=== PATIENT | female | born 1980 | race Caucasian/White ===

== ENCOUNTER 2024-04-14 05:30 | Emergency (ER) | payer OTHER, SELFPAY ==
[2024-04-14] VITALS (10 sets, daily range): BP systolic 128–205; BP diastolic 70–116; PULSE 70–80; RESP 16–18; TEMP 36.4; O2SAT 10–100
--- NOTE | ~2024-04-14 | XR_ITS ---
Clinical Indication: Hypertension, dizziness PA and lateral views of the chest: Comparison: 04/28/2009 Findings: The lungs are clear, without evidence of focal consolidation or pleural effusion. Cardiome diastinal silhouette is within normal limits. Bones and soft tissues are unremarkable. Impression: Normal chest. Reviewed, dictated and finalized at location . Impression: Normal chest.
--- NOTE | 2024-04-14 05:45 | ECG_ITS ---
Test Date: 2024-04-14 05:50:09 Measurements Intervals Ira Rate: 74 P: 49 DE: 171 QRS: -19 QRSD: 97 T: 23 QT: 393 QTc: 438 Interpretive Statements SINUS RHYTHM LOW QRS VOLTAGE IN PRECORDIAL LEADS [QRS DEFLECTION < 1.0 mV IN CHEST LEADS] CANNOT RULE OUT PREVIOUS INFERIOR INFARCTION POOR R-WAVE PROGRESSION ABNORMAL ECG No previous ECG available for comparison Electronically Signed On 04-14-2024 11:32:18 CDT by Zan Tyson M.D.
[2024-04-14 05:58] LABS: Glucose Point of Care 167 mg/dl (65-105)
[2024-04-14 06:01] LABS: Basophils Percent Auto 0.7 % (0.2-1.2); Eosinophils Percent Auto 0.5 % (0-4.4); Hematocrit 40.1 % (37.0-47.0); Hemoglobin 12.8 g/dL (12.0-15.0); Immature Granulocyte Absolute 0.02 K/mm3 (0.00-0.031); Immature Granulocyte Percent A 0.5 % (0-0.5); Lymphocytes Absolute Auto 1.39 K/mm3 (0.9-3.2); Lymphocytes Percent Auto 34.2 % (18.3-44.2); Mean Corpuscular HGB Conc 31.9 g/dl (32-36); Mean Corpuscular Hemoglobin 28.4 pg (26-34); Mean Corpuscular Volume 88.9 fl (80-100); Mean Platelet Volume 10.7 fl (7.4-10.4); Monocytes Absolute Auto 0.5 K/mm3 (0.1-0.6); Monocytes Percent Auto 13.1 % (2.6-8.5); Neutrophils Absolute Auto 2.1 K/mm3 (1.3-6.7); Platelet Count Result 248 k/mm3 (150-375); Red Blood Count 4.51 M/mm3 (4.2-5.4); Red Cell Distribution Width 13.2 % (11.5-14.5); White Blood Count 4.1 K/mm3 (4.5-10.0)
[2024-04-14 06:11] LABS: Alanine Aminotransferase 12 U/L (6-35); Albumin Level 4.2 g/dL (3.5-5.1); Alkaline Phosphatase 59 U/L (38-126); Anion Gap 11 mmol/L (4-12); Aspartate Amino Transferase 15 U/L (14-36); Bilirubin,Total 0.4 mg/dL (0.2-1.3); Blood Urea Nitrogen 9 mg/dL (7-17); Calcium 8.5 mg/dL (8.4-10.2); Carbon Dioxide 28 mmol/L (22-30); Chloride 98 mmol/L (98-107); Estimated CRCL calculation 118 ml/min; Estimated Glomerular Filt Rate > 60; Glucose 150 mg/dL (65-110); Lipase 70 U/L (23-300); Potassium 3.8 mmol/L (3.4-5.0); Sodium 137 mmol/L (137-145)
[2024-04-14 06:12] LABS: Prothrombin Time 13.7 Seconds (11.1-14.7)
[2024-04-14 06:13] LABS: Partial Thromboplastin Time 33.3 Seconds (22.3-36.8)
[2024-04-14 06:22] LABS: Troponin I < 0.012 ng/mL (0.000-0.034)
[2024-04-14] MEDS: ONDANSETRON INJ 4 MG/2 ML VIAL IV PUSH (08:27)
[2024-04-14] MEDS: SODIUM CHLORIDE 0.9% IV 1,000 ML 999 ML IV CONT (08:27)
[2024-04-14] MEDS: MECLIZINE HCL 25 MG TABLET PO (08:31)
[2024-04-14 09:16] LABS: Troponin I < 0.012 ng/mL (0.000-0.034)
--- NOTE | 2024-04-14 09:50 | ED.GENADULT ---
HPI - General Adult General Chief complaint: Dizziness Stated complaint: dizzy Time Seen by Provider: 04/14/24 07:07 History of Present Illness HPI narrative: Patient is a 43-year-old female who presents ER with dizziness. Sudden onset this morning. Worse when she lays back. Better when she sits forward. It made her nauseous and sweaty. Spinning in nature. Has not had similar symptoms. Has noticed a lymph node her right neck. No ear pressure. Related Data Allergies Allergy/AdvReac Type Severity Reaction Status Date / Time No Known Allergies Allergy Mild Unverified 04/23/17 21:40 Review of Systems Review of Systems: All systems reviewed & are unremarkable except as noted in HPI and below Constitutional: Constitutional: Reports no additional constitutional complaints ENT: Reports dizziness, Denies nasal congestion and Denies sore throat Cardiovascular: Cardiovascular: Reports no additional cardiovascular complaints Respiratory: Respiratory: Reports no additional respiratory complaints Gastrointestinal: Gastrointestinal: Reports no additional gastrointestinal complaints Neurologic: Denies syncope, Denies headache(s), Denies focal weakness and Denies numbness PMFSH Past Medical History Medical History (Updated 04/14/24 @ 09:54 by Lonnie Fontaine MD) Hypertension Surgical History Surgical History (Updated 04/14/24 @ 09:54 by Lonnie Fontaine MD) No pertinent past surgical history Exam Narrative: GENERAL: Well-appearing, well-nourished, and in no acute distress. HEAD: Normocephalic, atraumatic. EYES: PERRL and EOMI. Right gaze nystagmus. ENT: Mucous membranes moist. TMs normal bilaterally. NECK: Supple. Singular right-sided posterior cervical chain lymph node. CHEST: Clear to auscultation. No respiratory distress. HEART: Regular rate and rhythm. Normal peripheral pulses. EXTREMITIES: Normal range of motion. No edema. NEURO: Alert and oriented x3. PSYCH: Normal mood and affect. Course Vital Signs Vital signs: Vital Signs Temperature 97.6 F 04/14/24 05:33 Pulse Rate 80 04/14/24 05:33 Respiratory Rate 18 04/14/24 05:33 Blood Pressure 188/90 H 04/14/24 05:33 Pulse Oximetry 96 04/14/24 05:33 Oxygen Delivery Room Air 04/14/24 05:33 Temperature 97.6 F 04/14/24 05:33 Pulse Rate 80 04/14/24 05:33 Respiratory Rate 18 04/14/24 05:33 Blood Pressure 188/90 H 04/14/24 05:33 Pulse Oximetry 96 04/14/24 05:33 Oxygen Delivery Room Air 04/14/24 05:33 Medical Decision Making MDM Narrative Medical decision making narrative: -Course: Resting comfortably, no acute issues. -Co-morbidities complicating care: Hypertension, obesity -Social determinants of health: None -External Chart Review: None -Hx from independent Sources: Patient -Independent interpretation of studies: Minimally depressed white blood cell count. Coagulation studies as well as CMP normal. Slight elevation in glucose of 150. Troponin negative. Normal chest x-ray and EKG. -Interventions: Meclizine 25 mg p.o., 1 L normal saline IV. -Shared decision making / Disposition: Symptoms abated. Discharge home with meclizine prescription. Vital Signs Vital Signs: Vital Signs Temperature 97.6 F 04/14/24 05:33 Pulse Rate 80 04/14/24 05:33 Respiratory Rate 18 04/14/24 05:33 Blood Pressure 188/90 H 04/14/24 05:33 Pulse Oximetry 96 04/14/24 05:33 Oxygen Delivery Room Air 04/14/24 05:33 Temperature 97.6 F 04/14/24 05:33 Pulse Rate 80 04/14/24 05:33 Respiratory Rate 18 04/14/24 05:33 Blood Pressure 188/90 H 04/14/24 05:33 Pulse Oximetry 96 04/14/24 05:33 Oxygen Delivery Room Air 04/14/24 05:33 Lab Data 04/14/24 05:54 04/14/24 05:54 Labs: Lab Results 04/14/24 04/14/24 04/14/24 Range/Units 05:52 05:54 08:44 WBC 4.1 L (4.5-10.0) K/mm3 RBC 4.51 (4.2-5.4) M/mm3 Hgb 12.8 (12.0-15.0) g/
== END 2024-04-14 10:05 | disposition home or self-care (01) ==
PROVIDERS: Emergency Medicine; Emergency Provider Emergency Medicine
DX: R42 Dizziness and giddiness (principal); I10 Essential (primary) hypertension; E66.9 Obesity, unspecified; Z68.41 Body mass index [BMI] 40.0-44.9, adult
CPT/HCPCS: 36415; 71046; 80053; 82948; 83690; 84484; 85025; 85610; 85730; 93005; 96361; 96374; 99284; A9270; J2405; J7030

== ENCOUNTER 2025-03-12 00:19 | Day surgery (SDC) | payer OTHER, SELFPAY ==
[2025-03-09 08:27] VITALS: BMI 43.4
--- NOTE | 2025-03-09 08:28 | PC.NURSE ---
Report to the Outpatient Waiting Room, entrance under the green pavilion located off [facility], at time _2pm_ on date _19-02-1428_. Planned Procedure Time: _3pm_.? Time changes happen often and if your time is changed the preop area will call you the afternoon before. - You and your visitor will be asked to self-screen and do not enter if you have any COVID symptoms. Please call surgeon if you need to reschedule. - A mask is optional within the hospital at this time. Ok for breakfast and a light lunch. Take only the following medications with a SIP of water on the morning of surgery: ___Take medications as usual.___ DO NOT STOP ANY OF YOUR OTHER PRESCRIPTION MEDICATIONS PRIOR TO SURGERY EXCEPT THE FOLLOWING Hold all vitamins and supplements for 3 days per anesthesiologist. Medications to discontinue per physician Ibuprofen only take with Dr Lei's permission. Acetaminophen OK to take. Date to take last dose____ Please no make-up, nail czech, hairspray, perfume, deodorant, or body powder the day of surgery.? No jewelry (including any body piercings) or valuables the day of surgery, leave them at home.? Please take a shower or bath the night before, or the morning of, surgery with an antibacterial soap.? Wear comfortable, loose fitting clothing.? - Jewelry must be removed prior to entering the operating room.? Rings and piercings that are not removed may be cut off. - The hospital will not accept responsibility for valuables.? - Please leave all valuables, including medications, at home the day of surgery. OK to drive home but not a bad idea to have a coach tour driver. Follow any additional instructions given to you from your surgeon. Telephone instructions given to __Crystal__and asked if any additional questions and then verbalized understanding. Patient advised to call surgeon office or pre surgery nurse liaison [phone] if any additional questions.
[2025-03-12] VITALS (7 sets, daily range): BP systolic 136–161; BP diastolic 79–88; PULSE 66–81; RESP 16; TEMP 36.3; O2SAT 94–97
--- NOTE | 2025-03-12 13:07 | WPDHPUPDATE1 ---
History and Physical Update Update Date/Time: 03/12/25 13:07 History and Physical has been reviewed, including an updated exam of the patient. There are NO changes in the patient's condition. Risks, benefits, and alternatives have been discussed and questions answered. Patient agrees to proceed with procedure.
--- NOTE | 2025-03-12 13:51 | S_PTH ---
PATIENT: Krupa Herman LOC: [facility] U#:[id number] AGE/SX: 44/F ROOM: RE03/12/[address]: Cong Lei MD : 1980 BED: DIS: 03/12/2025 SPEC #: [id number] RECD: 03/13/25 08:24 STATUS: MARCOS REConner #: [id number] EZEQUIEL: 03/12/25 13:[address]: Cong Lei DEPT: [facility] Surgical RECD BY: Michelle Santos ENTERED: 03/13/25 08:24 SP TYPE: Surgical OTHR DR: Zan LambMD Tissues: A - Cyst Procedures: Hematoxylin and Eosin Stain Gross and Microscopic Level 4
[2025-03-12] MEDS: LIDO 1%/EPINEPHRINE 1:100,000 20 ML VIAL INFILTRATE (14:00)
[2025-03-12] MEDS: BUPivacaine HCL 0.5% PF 30 ML VIAL 20 ML INFILTRATE (14:00)
--- NOTE | 2025-03-12 14:18 | W.PM.PROC2 ---
Procedure Note - Detailed Date of Procedure 03/12/25 Pre-op Diagnosis Mid upper back Sebaceous Cyst Post-op Diagnosis Same Procedure Performed Excision of mid upper back sebaceous cyst with 4.5cm intermediate layered wound closure Surgeon Cong Lei MD Anesthesia Local Indications Patient is a 44-year-old female presented with a slowly enlarging mass on her back. On examination of was consistent with a sebaceous cyst which was non ruptured and not infected. She presents now for excision. Findings The cyst measured 2x1.5x1.5cm. It was well circumscribed and the wall was completely removed within the ellipse of tissue that was excised out. Grossly was consistent with a inclusion cyst most likely a sebaceous cyst. It was sent to pathology for examination. Description of Procedure After informed consent was obtained patient brought to the operating room she was placed prone on operating table. The area the mid upper back region was then prepped and draped usual sterile fashion. Time-out was then performed correctly identifying the patient as well as procedure to be performed. Site marking was verified. No antibiotics were started is no IV was started. I 1st started by anesthetizing the area around the cyst utilizing 1% lidocaine mixed with 0.5% Marcaine 50 50 mixture with some epinephrine. Once adequate analgesia had been achieved around the area I then made a vertical elongated ellipse incision to incorporate the edges and wall of the cyst. The initial incision was carried sharply down through the dermis of the skin with a scalpel. I then completely excised out the ellipse of tissue with the cyst wall within it and the attached overlying skin with electrocautery. The cyst measured approximately 2x1.5x1.5cm. It was sent to pathology for examination. Hemostasis an incision was then achieved electrocautery. It was then irrigated sterile saline solution. A multilayered intermediate layered closure utilizing interrupted 2-0 Vicryl sutures in multiple layers in the subcutaneous tissues was then performed. It was then followed with interrupted 3-0 Vicryl sutures in a deep dermal layer. The skin edges were then approximated utilizing a running subcuticular 4-0 Monocryl suture. The length of the skin closure was 4.5cm. The incision was then cleaned the skin glue was applied. The patient tolerated the procedure well no complications. All sponges, needles, and instrument counts were correct at the end procedure. EBL was _10__cc. The patient was awakened and taken to recovery in stable and satisfactory condition. Implants None Estimated Blood Loss 10 Drains No Packing No Pathology Yes (Cyst to pathology) Complications No immediate complications Condition Stable Disposition PACU [facility] Billing Surgery - Charge Forward: Surgery Billing
== END 2025-03-12 14:32 | disposition home or self-care (01) ==
PROVIDERS: PCP Internal Medicine; Visit Provider Surgery
PROC: (CPT 11403; principal; 2025-03-12 15:00)
DX: L72.0 Epidermal cyst (principal)
CPT/HCPCS: 11403; 12032; 88305; A9270; J2004

== ENCOUNTER 2025-08-01 09:49 | Outpatient (CLI) | payer OTHER, SELFPAY ==
--- NOTE | ~2025-08-01 | MM_ITS ---
EXAMINATION: MM screening vito BI w nabil HISTORY: Screening TECHNIQUE: Craniocaudal and mediolateral oblique 3-D tomosynthesis images were obtained and synthetic 2-D images were generated. CAD analysis was submitted and interpreted. COMPARISON: None provided BREAST PARENCHYMAL COMPOSITION: Not Dense: The breasts are almost entirely fatty. FINDINGS: There is no evidence of suspicious mass, calcification, or architectural distortion to suggest malignancy in either breast. IMPRESSION: 1. No mammographic evidence of malignancy. 2. Recommend routine screening mammography in one year. BI-RADS Category 1: Negative Reviewed, dictated and finalized at location B. ROLLING COORDINATOR
== END 2025-08-01 09:50 | disposition home or self-care (01) ==
LOC: ANHFOHIMG 09:51
PROVIDERS: PCP Internal Medicine; Visit Provider Internal Medicine
DX: Z12.31 Encounter for screening mammogram for malignant neoplasm of breast (principal)
CPT/HCPCS: 77063; 77067

== ENCOUNTER 2025-08-07 00:25 | Day surgery (SDC) | payer OTHER, SELFPAY ==
--- OUTSIDE RECORDS SUMMARY | 2020-08-25 12:21 | XMS_ITS | Continuity of Care Document ---
Author Organization [facility] Address [address] [place] [address] Phone Care Team Providers Care Provider Relations Specialist Name Role Phone Kanu Love MD Unavailable Unavailable Advance Directives Directive Yes / No Effective Date File Name No Information Encounters Encounter Description Practice Location Reason(s) For Visit Diagnoses Date Provider Providers Copied on Encounter [facility] , [address], [place], [place], [id number], [place] tel:[phone] Urgent Care No Information Ivan Bobby. [address], [place], [place], [id number], [place]. tel:[phone] Family History Family Member Type Diagnosis Age At Onset No Information Payers Payer name Insurance type Covered alliance party ID Authoriza tion(s) No Information Social History Type Description Quantity Date Captured Comments Sex Female Smoking Status No Information Chief Complaint And Reason For Visit No Information Reason For Referral Reason For Referral No Information History Of Present Illness Encounter Date Complaint History Of Prese nt Illness No Information Functional Status Date Functional Assessmen t No Information Instructions Date Instruction Additional Infor mation No Information Assessments Type Assessment Date No Information Patient Care Teams Name Effective Dates (start - stop) Status Members No Information
--- OUTSIDE RECORDS SUMMARY | 2025-06-21 04:38 | XMS_ITS | Continuity of Care Document ---
Author Organization [facility] Address [address] [place] [address] Phone Care Team Providers Care Crimping Press Operator Name Role Phone Jorge GODOY, FACC, Molly Unavailable Unavail able Allergies, Adverse Reactions, Alerts Substance Reaction Status Criticality No Known Allergies Active No Inform ation Medications Medication Instructions Dosage Effective Dates (start - stop) Status Comments lisinopril 20 mg-hydrochlorothiazid e 12.5 mg tablet take 1 tablet by oral route every day 1.00 tablet - Active tramadol 50 mg tablet TAKE 1 TABLET BY MOUTH 4 TIMES DAILY NEEDED FOR KNEE PAIN - Active ondansetron HCl 4 mg tablet TAKE 1 TABLET BY MOUTH EVERY 8 HOURS - Active diazepam 5 mg tablet TAKE 1 TABLET BY MOUTH ONE HOUR BEFORE PROCEDURE (DO NOT DRIVE) - Active levothyroxine 50 mcg tablet TAKE 1 TABLET BY MOUTH DAILY - Active Ozempic 1 mg/dose (4 mg/3 mL) subcutaneous pen injector INJECT 1MG UNDER THE SKIN ONCE A WEEK - Active carvedilol 25 mg tablet - Active metformin 500 mg tablet - Active valacyclovir 500 mg tablet TAKE 1 TABLET BY MOUTH TWICE DAILY FOR 7 DAYS - Active atorvastatin 10 mg tablet - Active Procedures Procedure Date NTRPROF PH1/NTRNET/EHR 5/> 09-2025 TTE W/DOPPLER, COMPLETE Complex e/m visit add on OFFICE/OUTPATIENT VISIT, NEW ELECTROCARDIOGRAM, COMPLETE ELECTROCARDIOGRAM REPORT Advance Directives Directive Yes / No Effective Date File Name No Information Encounters Encounter Description Practice Location Reason(s) For Visit Diagnoses Date Provider Providers Copied on Encounter NTRPROF PH1/NTRNET/E HR 5/> [facility], [address] [place] [address], [id number] , tel: [phone] [facility] Encounter for preprocedural cardiovascular examination 5 Jorge Barnes. [address] [place] [address], [place], [place], [id number] , [place]. tel: [phone] [facility], [address] [place] [address], [id number] , tel: [phone] [facility] Lucho Bowden patient (chief complaint) Body mass index [BMI] 45.0-49.9, adultMorbid (severe) obesity due to excess caloriesEssential (primary) hypertensionEncounte r for other preprocedural examination 5 Jorge Barnes. [address] [place] [address], [id number] , . tel: [phone] Referring Provider: Zan Lamb, [address] [place], [place], [facility]. tel:[phone] [facility], [address] [place] [address], [id number] , tel: [phone] [facility] Congregation No Information 5 Jorge Barnes. [address] [place], [place] [address], [place], [id number] , [place]. tel: [phone] Referring Provider: Zan Lamb, [address] [place], [address]. tel:[phone] OFFICE/OUTPA TIENT VISIT, NEW [facility], [address] [place] [address], [id number] , tel: [phone] [facility] Congregation New patient (chief complaint) Essential (primary) hypertensionMorbid (severe) obesity due to excess caloriesEncounter for other preprocedural examination May-2 5 Jorge Barnes. [address], [place], [place], [id number] , . tel: [phone] Referring Provider: Zan Lamb, [address] [place] [address], [id number]. tel:[phone] [facility], [address] [place] [address], [id number] , tel: [phone] [facility] Congregation No Information 5 Jorge Barnes. [address] [place], [place], [id number] , [place]. tel: [phone] [facility], [address] [place] [address], [id number] , [place] tel: [phone] [facility] No Information 5 Spring French. [address] [place], [place], [id number] , [place]. tel: [phone] Referring Provider: Manolo Londono, [facility] [address] , [place], [address] . tel:[phone] [facility], [address] [place] [address], [id number] , tel: [phone] [facility] Congregation Chest pain, unspecifiedShortness of breathEssential (primary) hypertensionMorbid (severe) obesity due to excess calories 0 5 Jorge Barnes. [address] [place], [place], [id number] , . tel: [phone] Family History Family Member Type Diagnosis Age At Onset No Information Payers Payer name Insurance type Covered constitution party ID Authoriza tion(s) R CI [id number] [facility] NEXUS [facility] CI [id number] Social History Type Description Quantity Date Captured Comments Sex Female Smoking Status No Information Chief Complaint And Reason For Visit No Information Reason For Referral Reason For Referral No Information Plan Of Treatment Date Type Action Status Goal Dietary manageme nt education, guidance, and counseling completed Future Order: Radiology Order Ec hocardiogram, Complete Transthoracic ([id number]), Ordered on: Ordered History Of Present Illness Encounter Date Complaint History Of Prese nt Illness New patient New patient New patient New patient Functional Status Date Functional Assessmen t No Information Instructions Date Instruction Additional Infor mation Dietary management e ducation, guidance, and counseling Related to Body mass index [BMI] 45.0-49.9, adult Assessments Type Assessment Date No Information Patient Care Teams Name Effective Dates (start - stop) Status Members No Information
[2025-07-23 13:10] VITALS: BMI 47.0
--- OUTSIDE RECORDS SUMMARY | 2025-08-07 00:28 | XMS_ITS | Data Portability ---
Author Organization [place] [facility] [place] [facility], Main Office Address [address] [place] [address] Care Team Providers Care Passenger Service Manager Name Role Phone HIEN LAMB Primary Care Provider HIEN LAMB Referring Provider [phone] EV SANDHU Remittance Clerk Unavailable Assessment Encounter Date Assessment Date Assessment LastModified by Organization Details LastModified Time 08/09/2023 08/09/2023 Continue current therapy will follow-up in 4 months diagnosis discussed blood work reviewed [email or web address] Not available 08/09/2023 21:24:14 01/23/2025 01/23/2025 This note is dictated and transcribed by [employer]. Mechanical Insulator variances may occur. Despite proofreading, typographical errors may occur. Occasional wrong-word or '[id number]' substitutions may have occurred due to the inherent limitations of voice recording. Read the chart carefully and recognize, using context, where substitutions have occurred. [email or web address] Not available 01/23/2025 11:32:57 05/21/2025 05/21/2025 45-year-old female presents for evaluation of her right knee. This is a work comp injury. 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 She has a 10-12 hour shift which she usually involves [phone] steps a day. She was moving a Pallet at work when the knee buckled, this happened on 03/21/2025. Since then, she has had persistent lateral pain and giving out as well as locking up of the knee constantly. She has pain with walking on it and has been on restricted duty where she has restricted walking and rides around in a mobility scooter. She has been taking tramadol and Tylenol as well as prednisone. She has also done several sessions of PT which did not help. She has a history of diabetes with A1c of 6.7. Review of systems per patient questionnaire Physical exam: She has antalgic gait favoring the right side. Tenderness palpation over the medial and lateral joint line, primarily lateral and posterolateral. She has range of motion 0-140, pain in terminal flexion, positive Kristie's. She had a palpable catching and clunk with moving from flexion to extension, this happened multiple times during the visit today. 1A Juan's, stable posterior drawer, stable varus and valgus stress x-rays were reviewed, demonstrating some mild degenerative changes and very small osteophytes, no acute bony abnormality. MRI was reviewed, ligaments and menisci appear to be intact however she does have area of signal and in the proximal tibia posteriorly at the lateral meniscus root insertion, there is also fluid and signal in the posterior notch in that area based on exam, concern for a meniscus tear causing her mechanical symptoms, despite no obvious tear seen on MRI, she does have bony edema at the root insertion Of the lateral meniscus. Given that she has failed conservative management, with persistent and constant catching and locking of that knee, we discussed surgery for an exam under anesthesia, diagnostic arthroscopy and possible meniscectomy versus repair. We will work with her insurance to get approval. Risks, benefits, and alternatives to surgery were discussed with the patient. Risks include but are not limited to pain, stiffness, infection, bleeding, blood clot, injury to other structures including nerves or blood vessels, need for future surgery, and anesthesia risks. We discussed the goal of surgery is to improve symptoms but there is no guarantee of improvement and it is possible the patient's condition is worse after surgery. Patient agreed and would like to proceed. Discussed that diabetes and obesity does increase her risk infection and other complication risk. Not available 05/21/2025 12:23:49 07/02/2025 07/02/2025 HPI: 45 year old female presents today for postop follow up after undergoing right knee partial lateral meniscectomy, chondroplasty, plica excision on 06/19. She is approximately 2 weeks postop. She reports posterior knee swelling has resolved, but has occassional catching of the knee. Pain and swelling is intermittent and localized superior aspect of the knee. Symptoms are excerbated by prolong standing. Currently rates her pain 5/10. Physical Exam: General: Normal appearance. No acute distress. Inspection: Incisions are clean dry and intact. No signs or symptoms of infection. Palpation: Nontender with palpitation around the incision site. Sensation: Lower extremity sensation intact. Assessment & Plan: She is approximately 2 weeks post, overall doing well still experiencing ocassional catching and intermittnet pain and swelling. She works at [employer] and doesn't feel like she can return to work right now. PT ordered. This will be beneficial for continued strengthening and ROM, so she is able to perform all job duties without pain or limitations. Rx for Naproxen Work Status: Return in 2 weeks with no bending or kneeling and to allow for frequent breaks. Follow Up: 4 weeks. All questions were answered. Patient verbalized understanding of treatment plan [email or web address] Not available 07/02/2025 13:28:06 07/30/2025 07/30/2025 45-year-old female presents for follow-up of her right knee status post meniscectomy and synovectomy on 06/19/2025. She has been doing PT, has 3 sessions left, reports that has been helping. She has been on light duty at work and has been able to function. Overall she reports feeling significantly better, she still has some occasional pressure clicking especially with extended periods of activity. Incisions are well healed. 1+ effusion. Some sensitivity around the joint line. Range of motion 0-130 At this point she is making progress. We will have her finish her course of PT. We will advance her restrictions to activities as tolerated with breaks, no more restrictions on bending or kneeling. Follow up in 4 weeks, anticipate MMI at that time. Not available 07/30/2025 14:15:32 Plan of Treatment Reminders Order Date Submit Date Provider Last Modified By Organization Details Last Modified Time Details Appointments Any 5 2024 11:30A M Kanu Morris MD Not available Not available Not available Lab None recorded. Referral physical therapist referral - Please schedule pt for R knee post op lateral meniscus tear. 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 Surgeries None recorded. Imaging None recorded. Medication Orders naproxen 500 mg tablet 2024 025 [id number], [address], [place], [phone], 07/02/2025 16:04:16 Patient TargetsNo targets recorded. Patient InstructionsNo instructions recorded. Reason for Referral Physical Therapist Referral for Pain of right knee joint R knee post op Please schedule pt for R knee post op lateral meniscus tear. [facility] 07/02/25 Additional InfoInjury Date 03/21/2025Injured Body Part R KNEEWorker's Comp PHOEBE [employer] [id number] Referring Physician: Alka Champagne, Orthopedic Surgery, Encounter Date: 07/02/2025 Results Created Date Observation Date Name Description Value Unit Range Abnormal Flag Note LastModifiedBy Organization Detail LastModifiedTime 05/17/2004/23/2025 MRI, knee, w/o contr ast No observ ation record ed. [email or web address] Not Available 12/2024 17:37:37 Result Notes None recorded. Problems Name Problem SNOMED Code Status Onset Date Resolution Date Notes Provider Name and Address Organization Details Recorded Time Chronic tonsilliti s 89086903 Active 2021 Not Available [facility] 3 23:00:26 Polycystic ovary syndrome 932334395 Active 2021 Not Available [facility] 3 23:00:26 Essential hypertensi on 29097520 Active 2021 Not Available [facility] 3 23:00:26 Herpes simplex type 1 infection 941678014 Active 2021 Not Available [facility] 3 23:00:26 Motion sickness 52773346 Active 2021 Not Available [facility] 3 23:00:26 Obesity 710012524 Active 2021 Not Available [facility] 3 23:00:26 Otitis media 90230742 Active 2021 Not Available [facility] 3 23:00:26 Chest pain 83865762 Active 2021 Not Available [facility] 3 23:00:26 Hypothyroi dism 82478156 Active 2021 Not Available [facility] 3 23:00:26 Headache 16045735 Active 2021 Not Available [facility] 3 23:00:26 Thyroid stimulatin g hormone level above reference range 082930715 Active 2021 Not Available [facility] 3 23:00:26 Obstructiv e sleep apnea syndrome 98114998 Active 2022 Not Available [facility] 3 23:00:26 Fatigue 93715271 Active 2022 Not Available [facility] 3 23:00:26 Blood glucose outside reference range 579656075 Active 2022 Not Available [facility] 3 23:00:26 Type 2 diabetes mellitus without complicati on 089419928 Active 2022 Lila martin, [facility] [employer] [facility] 3 10:38:40 Type 2 diabetes mellitus 52845164 Active 2024 Dominick Mcdowell DPM [address], [address], [place], [address] , [facility] [employer] [facility] 5 11:33:39 Plantar fasciitis 595239164 Active 2024 Dominick Mcdowell DPM [address], [address], [place], [address] , [facility] [employer] [facility] 5 11:33:45 Pain of right knee joint 5607741830857 00 Active 2024 Ewa Martinez CNA veronica MAUREEN SANCHEZ [facility] 11:34:13 Notes:[facility] split night sleep study 06/11/22 AHI = 46, supine AHI = 75, [employer] medium AirFit N30i nasal mask @ 14 cmH2O Medical History: Obesity with very severe OSAHS, AHI = 46, 06/11/22, on CPAP c/o IVRC Hypothyroidism Hypertriglyceridemia Hypertension EF 60% T2DM YVETTE PCOS HSV-1 infection Problem Notes None recorded. Procedures Surgical History Date Name Laterality Status Provider Name and Address Organization Details Recorded Time completed Ewa Martinez CNA [employer] [facility] 05/21/2025 11:43:12 arthroscopy of shoulder completed Ewa Martinez CNA MAUREEN [employer] [facility] 05/21/2025 11:43:30 Carpal tunnel surgery completed Ewa Martinez CNA [employer] 05/21/2025 11:43:22 destruction of lesion of uterus completed Not Available [facility] 11/12/2022 00:26:54 Tubal Ligation completed Not Available [facility] 11/12/2022 00:26:54 Imaging Results None recorded. Procedure Notes None recorded. Medical Equipment None Reported. Allergies No known drug allergies Medications Name Sig Start Date Stop Date Status Note LastModified by Organization Details LastModified Time amoxicill in 500 mg capsule TAKE ONE CAPSULE BY MOUTH THREE TIMES DAILY UNTIL ALL TAKEN 06/28 completed Not Available Not Available Not Available metformin 500 mg tablet TAKE 1 TABLET BY MOUTH TWICE DAILY active Not Available Not Available No t Available carvedilo l 25 mg tablet TAKE 1 TABLET BY MOUTH TWICE DAILY active Not Available Not Available No t Available clonidine HCl 0.1 mg tablet TAKE 1 TABLET BY MOUTH TWICE DAILY 05/21 completed Not Available Not Available Not Available carvedilo l 12.5 mg tablet TAKE 1/2 TABLET BY MOUTH TWICE DAILY 05/04 completed changed to 25mg BID Not Available Not Available Not Available clindamyc in HCl 300 mg capsule TAKE 1 CAPSULE BY MOUTH THREE TIMES DAILY FOR 7 DAYS 05/21 completed Not Available Not Available Not Available atorvasta tin 10 mg tablet TAKE 1 TABLET BY MOUTH EVERY DAY active Not Available Not Available No t Available lisinopri l 20 mg-hydroc hlorothia zide 12.5 mg tablet TAKE 1 TABLET BY MOUTH EVERY DAY active Not Available Not Available No t Available ibuprofen 800 mg tablet TAKE 1 TABLET BY MOUTH THREE TIMES DAILY WITH FOOD 12/15 completed Not Available Not Available Not Available hydrocodo ne 5 mg-acetam inophen 325 mg tablet Take 1 tablet every 6 hours by oral route. 2024 active Not Available Not Available Not Avai lable ondansetr on HCl 4 mg tablet TAKE 1 TABLET BY MOUTH EVERY 8 HOURS active Not Available Not Available No t Available prednison e 20 mg tablet TAKE 2 TABLETS BY MOUTH DAILY 05/21 completed Not Available Not Available Not Available meclizine 12.5 mg tablet TAKE 1 TABLET BY MOUTH THREE TIMES DAILY NEEDED FOR DIZZINES S 05/21 completed Not Available Not Available Not Available amlodipin e 2.5 mg tablet TAKE 1 TABLET BY MOUTH EVERY DAY 07/06 completed Not Available Not Available Not Available phentermi ne 37.5 mg tablet Take 1 tablet every day by oral route. active Not Available Not Available No t Available amlodipin e 5 mg tablet TAKE 1 TABLET BY MOUTH ONCE DAILY 02/01 completed Not Available Not Available Not Available valacyclo vir 500 mg tablet TAKE 1 TABLET BY MOUTH TWICE DAILY FOR 7 DAYS 05/21 completed Not Available Not Available Not Available tramadol 50 mg tablet TAKE 1 TABLET BY MOUTH 4 TIMES DAILY NEEDED FOR KNEE PAIN active Not Available Not Available No t Available spironola ctone 25 mg tablet TAKE 1 TABLET BY MOUTH ONCE DAILY 05/21 completed Not Available Not Available Not Available levothyro xine 50 mcg tablet TAKE 1 TABLET BY MOUTH DAILY active Not Available Not Available No t Available neomycin- polymyxin -dexameth 3.5 mg/mL-10, 000 unit/mL-0 .1% eye drops INSTILL 1 DROP IN BOTH EYES FOUR TIMES DAILY FOR 7 DAYS 11/19 completed Not Available Not Available Not Available prednison e 50 mg tablet TAKE 1 TABLET BY MOUTH EVERY MORNING 11/19 completed Not Available Not Available Not Available losartan 25 mg tablet Take 1 tablet every day by oral route. active Not Available Not Available No t Available lisinopri l 10 mg-hydroc hlorothia zide 12.5 mg tablet TAKE 1 TABLET BY MOUTH DAILY active Not Available Not Available No t Available scopolami ne 1 mg over 3 days transderm al patch APPLY PATCH TOPICALL Y 4 HOURS BEFORE TRAVEL AND CHANGE PATCH EVERY 72 HOURS 05/21 completed Not Available Not Available Not Available naproxen 500 mg tablet TAKE 1 TABLET BY MOUTH TWICE DAILY active Not Available Not Available No t Available diazepam 5 mg tablet TAKE 1 TABLET BY MOUTH ONE HOUR BEFORE PROCEDUR E (DO NOT DRIVE) 05/21 completed Not Available Not Available Not Available amoxicill in 875 mg-potass ium clavulana te 125 mg tablet TAKE 1 TABLET BY MOUTH TWICE DAILY 06/28 completed Not Available Not Available Not Available metaxalon e 800 mg tablet 11/19 completed Not Available Not Available Not Available chlorhexi dine gluconate 0.12 % mouthwash SWISH AND SPIT 15 ML BY MOUTH TWICE DAILY 05/21 completed Not Available Not Available Not Available Tylenol active Not Available Not Avail able Not Available Ranitidin e 06/12 completed Not Available Not Available Not Available Ozempic 1 mg/dose (4 mg/3 mL) subcutane ous pen injector INJECT 1MG UNDER THE SKIN ONCE A WEEK active Not Available Not Available No t Available Ozempic 2 mg/dose (8 mg/3 mL) subcutane ous pen injector Inject 2 mg every week by subcutan eous route. 05/21 completed Not Available Not Available Not Available Ozempic 0.25 mg or 0.5 mg (2 mg/3 mL) subcutane ous pen injector INJECT 0.25 MG SUBCUTAN EOUSLY ONCE A WEEK 05/21 completed Not Available Not Available Not Available Vitals Date Recorded Body height Body temperature Heart rate Oxygen saturation Systolic And Diastolic Provider Name and Address Organization Details Last Updated DateTime 167.64 cm 98.1 [degF] 73 /min 99 % 189/110 mm[Hg] ALVARO Bowman [place] [facility] 10:57:35 Date Recorded Body mass index (BMI) Body weight Provider Name and Address Organization Details Last Updated DateTime 01/23/2025 44.4 kg/m2 971155.9 g Leilani Chandler [facility] 01/23/2025 10:52:50 Date Recorded Body height Body mass index (BMI) Body weight Provider Name and Address Organization Details Last Updated DateTime 05/21/2025 167.64 cm 44.4 kg/m2 691073.9 g Ewa Dianetim [employer] [facility] 05/21/2025 11:39:09 Date Recorded Body height Body mass index (BMI) Body weight Pain severity - 0-10 verbal numeric rating [Score] - Reported Provider Name and Address Organization Details Last Updated DateTime 07/02/2025 167.64 cm 44.4 kg/m2 997310.9 g 5 Dena Conte [facility] 07/02/2025 11:54:13 Date Recorded Body height Body mass index (BMI) Body weight Pain severity - 0-10 verbal numeric rating [Score] - Reported Provider Name and Address Organization Details Last Updated DateTime 07/30/2025 167.64 cm 44.4 kg/m2 898164.9 g 2 Dena Conte [facility] 07/30/2025 11:59:24 Date Recorded Body height Body mass index (BMI) Body weight Body temperature Heart rate Systolic And Diastolic Provider Name and Address Organization Details Last Updated DateTime 167.64 cm 49.6 kg/m2 084792. 86 g 97.3 [degF] 79 /min 126/82 mm[Hg] Savi Soliman [facility] 3 14:37:13 Social History Question Answer Notes LastModified by Organizat ion Details LastModified Time Tobacco Smoking Status Never Smoker Not Available [employer] 11/12/2022 00:26:33 Do You Have An Advance Directive? No [id number] Information not available 11/12/2022 If You Are , What Was Your Level Of Alcohol Consumption Prior To ? None MIGRATION.50661 [id number] Information not available 11/12/2022 What Is Your Level Of Caffeine Consumption? Occasional Coffee MIGRATION.57372 [id number] Information not available 11/12/2022 In The 14 Days Before Symptom Onset, Have You Had Close Contact With A Laboratory-confi rmed COVID-19 While That Case Was Ill? No MIGRATION.20097 [id number] Information not available 11/12/2022 In The 14 Days Before Symptom Onset, Have You Had Close Contact With A Person Who Is Under Investigation For COVID-19 While That Person Was Ill? No MIGRATION.28169 [id number] Information not available 11/12/2022 What Type Of Diet Are You Following? REGULAR Low Carb MIGRATION.16977 18330 Information not available 11/12/2022 What Is The Highest Grade Or Level Of School You Have Completed Or The Highest Degree You Have Received? [id number] MIGRATION.66520 30927 Information not available 11/12/2022 Have There Been Any Changes To Your Family Or Social Situation? No MIGRATION.55737 55827 Information not available 11/12/2022 Are There Any Guns Present In Your Home? No MIGRATION.22310 73814 Information not available 11/12/2022 Do You Use Insect Repellent Routinely? No MIGRATION.90656 90785 Information not available 11/12/2022 Where Do You Live? [facility] MIGRATION.59307 47673 Information not available 11/12/2022 Do You Have A Medical Power Of Desktop Engineer? No MIGRATION.48342 32167 Information not available 11/12/2022 What Was The Date Of Your Most Recent Tobacco Screening? 07/02/2025 [email or web address] Information not available 07/02/2025 Do You Have Any Pets? Yes Cats And Ddogs MIGRATION.58043 66239 Information not available 11/12/2022 What Is Your Relationship Status? MIGRATION.95888 01984 Information not available 11/12/2022 Do You Use Your Seat Belt Or Car Seat Routinely? Yes MIGRATION.45535 74643 Information not available 11/12/2022 Do You Have Smoke And Carbon Monoxide Detectors In Your Home? Yes MIGRATION.39052 20099 Information not available 11/12/2022 Are You Passively Exposed To Smoke? No MIGRATION.81610 73155 Information not available 11/12/2022 Are There Any Smokers In Your House? No MIGRATION.52377 80319 Information not available 11/12/2022 What Types Of Sporting Activities Do You Participate In? None MIGRATION.74117 01299 Information not available 11/12/2022 Do You Use Sunscreen Routinely? No MIGRATION.46727 88202 Information not available 11/12/2022 Has Tobacco Cessation Counseling Been Provided? No MIGRATION.73765 46417 Information not available 11/12/2022 Have You Recently Traveled Abroad? No MIGRATION.39736 47372 Information not available 11/12/2022 Do You Have Any Dietary Restrictions? No MIGRATION.94894 35762 Information not available 11/12/2022 Sex: Female Functional Status Question Answer Note LastModified by Organizat [employer] Details LastModified Time Do you use any illicit or recreational drugs? No MIGRATION.[id number] 26 Information not available 11/12/2022 Do you or have you ever used any other forms of tobacco or nicotine? No MIGRATION.46635913 26 Information not available 11/12/2022 What is your level of alcohol consumption? None MIGRATION.[id number] 26 Information not available 11/12/2022 What is your occupation? [employer] MIGRATION.[id number] 26 Information not available 11/12/2022 What is your exercise level? None MIGRATION.[id number] 26 Information not available 11/12/2022 Mental Status Question Answer Note LastModified by Organizat [employer] Details LastModified Time Do you feel stressed (tense, restless, nervous, or anxious, or unable to sleep at night)? [id number] job MIGRATION.[id number] 6 Information not available 11/12/2022 Family History Relationship Description Onset Age of this Age Resolved Age Notes LastModified by Organization Details LastModified Time Mother Malignant neoplasm of ovary [id number] Not available 11/12/2022 00:26:55 Father History of malignant neoplasm of uterine body [id number].602 [id number] Not available 11/12/2022 00:26:55 Daughter Anemia 18 [email or web address] Not availa ble 03/19/2023 12:02:34 Daughter Anemia 14 IS 24 NOW Not available 03/19/2023 12:02:44 Mother Diabetes mellitus [email or web address] Not available 2024 10:53:21 Mother Cerebrovascu lar accident [email or web address] Not available 10:53:38 Mother Essential hypertension [email or web address] Not available 10:54:04 Mother Osteoporosis Not availa ble 01/23/2025 10:54:24 Father Diabetes mellitus [email or web address] Not available 2024 10:53:21 Father Arthritis Not available 01/23/2025 10:53:46 Father Essential hypertension [email or web address] Not available 10:54:04 Medical History Condition Response NERVE DISEASE N BLINDNESS N RHEUMATIC FEVER N KIDNEY STONES N BLADDER PROBLEMS N MRSA N OTHER # 1 N POLIO N LUNG DISEASE/DISORDER N HISTORY OF DRUG ABUSE N RADIATION / CHEMOTHERAPY N COPD N Other # 2 N BLOOD DISEASES N EAR OR HEARING PROBLEMS N MUMPS N SHINGLES N BOWEL PROBLEMS N DEPRESSION (INCLUDING POST ) N STROKE/TIA N ULCERS N BENIGN PROSTATIC HYPERPLASIA N MEASLES N HYPOTENSION N MYOCARDIAL INFARCTION N OBESITY Y GERD/NAUSEA N ANEURYSM N URINARY/BLADDER/KIDNEY PROBLEMS N CORONARY ARTERY DISEASE (CAD) N ADDICTION CONCERNS N ENDOMETRIOSIS Y Impotence N USE OF BLOOD THINNERS N SKIN PROBLEMS N GASTROINTESTINAL DISORDER N PERIPHERAL VASCULAR DISEASE N MUSCLE,JOINT OR BONE PROBLEMS N GASTROINTESTINAL BLEEDING N BLOOD CLOTS N ASTHMA N CATARACTS N ERECTILE DYSFUNCTION N VARICOSITIES N GI PROBLEMS N Low Testosterone N INFERTILITY N AIDS/HIV N CHEMOTHERAPY / RADIATION N LIVER DISEASE N MALE HYPOGONADISM N HYPERTENSION Y Deficiency N TOURETTE'S N ANXIETY DISORDER N BLOOD TRANSFUSION Y ANEMIA/BLOOD DISORDER N CHRONIC EAR INFECTIONS N BRONCHITIS N TUBERCULOSIS N GLAUCOMA N FOOT PROBLEM N DIVERTICULITIS N SLEEP APNEA N CHICKENPOX N INFECTIOUS DISEASE N HEART ARRHYTHMIA N PROSTATE N INSOMNIA Y HIGH CHOLESTEROL / HYPERLIPIDEMIA N HYPERTHYROIDISM N EYE PROBLEMS N EDEMA N CHRONIC PAIN SYNDROME N CAROTID BLOCKAGE N CONSTIPATION N HAVE YOU BEEN HOSPITALIZED OR SEEN IN [facility] IN THE PAST YEAR ? N ATHEROSCLEROSIS N BREAST PROBLEMS N DIALYSIS N ECZEMA N HISTORY WITH COMPLICATIONS WITH ANESTHES IA ? N OSTEOPOROSIS N ARTHRITIS N NO SIGNIFICANT PAST MEDICAL HISTORY N APPENDICITIS N DIABETES, TYPE Y BAD TEETH N ENT N HEARTBURN / REFLUX Y AUTISM SPECTRUM DISORDER (ASD) N HEPATITIS / LIVER DISEASE N GOUT N SLEEP DISORDER N ALZHEIMER'S DISEASE N Brain Problems N HERPES N DEMENTIA N HEADACHES/MIGRAINES Y SEIZURES/EPILEPSY N VASCULAR DISEASE N PACEMAKER N Blood Disorder N DIZZINESS N HEART DISEASE/HEART PROBLEMS N KIDNEY DISEASE N MULTIPLE SCLEROSIS N CARDIAC ARRHYTHMIA N CANCER: SPECIFY N ATRIAL FIBRILLATION N [place] N PULMONARY EMBOLISM N AUTOIMMUNE DISEASE N Gynecological HistoryNo gynecological history recorded. Obstetrics History GPAL:G 0 P 0 0 0 0 Immunizations Vaccine Type Date Status Note Provider Nam e and Address Organization Details Recorded Time COVID-19, mRNA, LNP-S, PF, 30 mcg/0.3 mL dose 04/18/2021 completed Not Available [facility] 3 23:00:26 COVID-19, mRNA, LNP-S, PF, 30 mcg/0.3 mL dose 03/18/2021 completed Not Available [facility] 3 23:00:26 Past Encounters Encounter ID Performer Location Encounter Start Date Encounter Closed Date Diagnosis/Indication Diagnosis SNOMED-CT Code Diagnosis ICD10 Code Diagnosis IMO Codes Diagnosis Note [id number] Hien Lamb MD S[facility] Internal Med [facility] [address] [address] 11/07/2021 00:00:00 11/07/2021 19:56:36 [id number] Wade Carey MD [facility] ENT [place] [address] [place] [address] 11/20/2021 00:00:00 11/20/2021 15:15:06 [id number] Hien Lamb MD S[facility] Internal Med [place] [address] [address] 11/24/2021 00:00:00 11/30/2021 21:15:20 [id number] Hien Lamb MD [facility] Internal Med [place] [facility] [address] [facility] [address] [address] 12/15/2021 00:00:00 01/04/2022 11:12:51 [id number] Hien Lamb MD S[facility] Internal Med [place] [address] [address] 02/17/2022 00:00:00 02/17/2022 22:41:16 [id number] Hien Lamb MD [facility] Internal Med [place] [address] [address] 03/23/2022 00:00:00 03/29/2022 11:58:53 [id number] Hien Lamb MD [facility] Internal Med [place] [address] [address] 05/04/2022 00:00:00 05/04/2022 22:15:04 [id number] Hien Lamb MD [facility] Internal Med [facility] [address] [facility] [address] [address] 05/25/2022 00:00:00 05/25/2022 21:37:20 [id number] Hien Lamb MD S[facility] Internal Med [facility] [address] [facility] [address] [address] 07/06/2022 00:00:00 07/07/2022 19:55:33 [id number] Hien Lamb MD S[facility] Internal Med [facility] [address] [facility] [address] [address] 10/05/2022 00:00:00 10/12/2022 23:06:00 [id number] Deloris Mantilla, [facility]G Pulmonolo gy Avi Benedict [address] [place] [address] 10/06/2022 00:00:00 10/06/2022 16:57:15 [id number] Hien Lamb MD S[facility] Internal Med [facility] 2043 [facility], [address] [address] 02/01/2023 14:11:10 02/01/2023 15:20:22 Obesity 274816846 E66.[address] imulating hormone level above reference range 323615202 R94.6 Essential hypertension 82854177 I10 [id number] Hien Lamb MD [facility] Internal Med [facility] [address] [address] 03/19/2023 11:50:43 03/19/2023 12:38:01 Essential hypertension 45562207 I10 [id number] Hien Lamb MD [facility] Internal Med [facility] [address] [facility] [address] [address] 06/28/2023 14:31:23 06/28/2023 15:23:36 Essential hypertension 44506921 I10 Fatigue 98713412 R53.83 Obesity 421941751 E66.9 Hypothyroidism 07352863 E03.9 [id number] Brianda celis MD [facility] Internal Med [facility] [address] [facility] [place] [address] [place] [address] 07/13/2023 10:49:38 07/13/2023 11:40:48 Type 2 diabetes mellitus without complication 775688859 E11.9 We discussed GLP-1 agonist mechanism of action and how to mitigate side effects. Patient denies any personal or family history of MEN II, MTC or an personal history of pancreatit is. Patient is aware to call office with any severe abdominal pain or n/v, or any thyroid pain or swelling. We discussed dosing schedule and storage. Patient was shown how to use the medication on a demo device and then gave themselves their first shot in office without issue. My Fitness Pal daryn recommende d to track foods. Discussed signs/symp toms of hypo and hyperglyce yue. 45 min spent with patient and over half spent on counseling . Patient voices understand ing of plan and agrees. Essential hypertension 39154644 I10 monitor BP at home, keep follow up appt with Dr. Rubin precaution s Obesity 657024000 E66.9 patient has already started to make changes- congratula juju her on her efforts thus far! recommend healthy, well balanced mealsfocus on lean meats, fresh vegetables , fresh fruits, whole grainsredu ce fast/proce ssed foods or eating out to no more than 1-2 times per weekaim to get 30 min of exercise most days of the week- walking is a great choicealso recommend resistance training 2-3 times per weekwould recommend she increase protein, for her height at least 130g per day we had a long discussion about nutrition, how to figure out TDEE, and how to work to be in a mild deficit without crash dietingrec ommend TDEEcalcul ator.net to figure out TDEE, aim to get 200-300 cals below TDEE for sustainabl e weight losswe discussed the importance of protein, we discussed macros and how to count themthe importance of daily fitness was discussed, including the importance of resistance training [id number] Hien Lamb MD [facility] Internal Med [facility] [address] [facility] [address] [place] [address] 08/09/2023 14:20:24 08/09/2023 16:06:52 Essential hypertension 24292184 I10 Hypothyroidism 45199877 E03.9 Obesity 921877434 E66.9 [id number] Dominick Mcdowell DPM S[facility] Podiatry [address] [place] [address] 01/23/2025 10:38:47 01/29/2025 13:15:54 Type 2 diabetes mellitus 97990937 E11.9 [id number] Patient educated on neuropathy , diabetes, diabetic diet, and daily foot exams. Patient is to check feet daily for new wounds, blisters, redness to prevent infection and ulceration s to the feet. Patient will return to clinic in 3 months for diabetic foot workup. Plantar fasciitis 20280414 003 M72.2 46900 left footdiscus sed shoe gear and insolesRec ommend Powerstep [place] insolesStr etching exercises reviewed and dispensedC ontinue icingRice therapy dailyFollo w-up in 4 weeks possible injection [id number] Kanu Morris MD [facility] [address] 05/21/2025 11:13:24 05/21/2025 12:16:00 Pain of right knee joint 5735325408 40443 M25.561 [id number] Kanu Morris MD [facility] [address] 07/02/2025 11:51:02 07/02/2025 12:30:56 Pain of right knee joint 4903069708 79792 M25.561 [id number] Kanu Morris MD [facility] [address] 07/30/2025 11:53:49 07/30/2025 12:29:54 Pain of right knee joint 7085218388 92622 M25.561 [id number] Health Concerns Section Related Observation LastModified by Organization Detai ls LastModified Time None Recorded Concern Status LastModified by Organization Details LastModified Time None Recorded Advance Directives Directive N: Payers Insurance Date Sequence Insurance Name Policy Number Policy Vigil Covered Member ID Vigil Member ID Guarantor Name 07/27/2025 1 [id number] Krupa Justice [id number] Krupa Justice 07/27/2025 2 [facility] [id number] Carlos Justice [id number] Krupa Derrick Justice 05/25/2025 [facility] Krupa Justice Notes Date Note Type Note Provider Name and Address Organization Details Recorded Time 08/09/2023 text/html Ozempic no side effects blood pressure doing better on lisinopril hydrochlorothiazide . Hypothyroid no heat or cold intolerance Hien Lamb MD [address], [facility] [address], [place], [address], [employer] 08/09/2023 21:24:34 01/23/2025 text/html . Patient is a 44-year-old female diabetic she presents for diabetic foot care. Patient states that she also has been having some discomfort in her left heel she denies any injury she states she works at [employer] she states that she does approximately 11 miles of walking daily she states the heel pain is intermittent and sometimes is 4/10 and other days it is 9/10. Patient denies any open wounds or infection to the area. Patient states when she is off her foot it does feel better. Patient has been doing some stretching. Patient denies any other complaints. Dominick Mcdowell DPM [address], [facility] [address], [place], [address], [employer] 01/23/2025 13:59:38 OBGyn Episode No OBEpisode recorded.
--- OUTSIDE RECORDS SUMMARY | 2025-08-07 00:28 | XMS_ITS | Continuity of Care Document ---
Author Organization [facility] ([facility]) Address [address] [place] [address] Care Team Providers Care Bath Solution Maker Name Role Phone HIEN LAMB Primary Care Provider [facility] Family Services Manager [phone] SOBEIDA RUFFIN Precise Winder Assessment Encounter Date Assessment Date Assessment LastModified by Organization Details LastModified Time 05/30/2025 05/30/2025 Cardiology referral see me in 3 months cardiology will give clearance Not available 06/17/2025 15:22:36 Plan of Treatment Reminders Order Date Submit Date Provider Last Modified By Organization Details Last Modified Time Details Appointments ANY 15 025 10:45AM Hien Lamb MD Not available Not available Not available Lab HbA1c (hemogl obin A1c), blood 025 025 [facility], [address] [place] [address], [address], [place], [address], 05/31/2025 23:51:38 Referral None recorde d. Procedures None recorde d. Surgeries None recorde d. Imaging None recorde d. Medication Orders None recorde d. Patient TargetsNo targets recorded. Patient Instructions Encounter Date Encounter Id Patient Instructions Last Modified By Organization Details Last Modified Time 05/30/2025 [id number] A healthy lifestyle: care instructions Not available 05/30/2025 12:49:45 Reason for Referral None Reported. Results Created Date Observation Date Name Description Value Unit Range Abnormal Flag Note LastModifiedBy Organization Detail LastModifiedTime 05/30/2005/30/2025 HEMOG LOBIN A1C hemoglobin A1C 5.6 % 4.8-5. 6 Predi abete s: 5.7 - 6.4 Diabe bright: >6.4 Glyce richard contr ol for adult s with diabe bright: <7.0 Not Available [facility] ([facility]) [address] [facility], [place], [address], 05/31/2025 23:51:38 06/20/20 25 06/14/2025 , [facility] ardio gram No observ ation record ed. minesh Patel MD [address], [place], [address], 06/25/2025 09:05:27 08/01/20 25 08/01/2025 MAMMO , scree edison, digit al, bilat eral No observ ation record ed. [address], [place], [address], 08/05/2025 22:34:18 08/01/20 25 08/01/2025 MAMMO , scree edison, digit al, bilat eral No observ ation record ed. [address], [place], [address], 08/05/2025 22:34:19 Result Notes None recorded. Problems Name Problem SNOMED Code Status Onset Date Resolution Date Notes Provider Name and Address Organization Details Recorded Time Polycystic ovaries Active 2017 [facility] 8 17:11:38 Condyloma acuminata of vulva 195566274 Active 2017 [facility] 8 17:11:40 Menorrhagia 591763399 Active 2017 [facility] 8 17:11:45 Female sterilizati on Active 2017 [facility] 8 17:15:32 Deliveries by 743362132 Active 2017 Keo martin, [place] - [facility] 8 17:15:34 Urogenital infection by Trichomonas vaginalis 18947206 Active 2017 Keo [place], [place] - [facility] 8 12:16:51 Bacterial vaginosis 297442785 Active 2017 Keo [place], [place] - [facility] 8 12:16:55 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 8973120554378 Active 2017 Keo [place], [place] - [facility] 8 12:17:05 High hemoglobin A1c level 321069202 Active 2017 Dean Block PA-C Attn: [facility],[address] [place], [address], [place] [facility] 8 11:08:27 Skin tag 204051299 Active 2017 Dean Block PA-C Attn: [facility],[address] [place], [address], [place] [facility] 8 11:14:54 Obese 383680844 Active 2017 Dean Block PA-C Attn: Jorgein g,[address] [place], [address], [place] [facility] 8 19:16:13 Abnormal uterine bleeding 6850687422461 0 Active 2023 Hien Lamb MD Attn: [facility],[address] [place], [address], [place] [facility] 4 15:01:20 Essential hypertensio n 88604609 Active 2023 Hien Lamb MD Attn: [facility],[address] [place], [address], [place] [facility] 4 15:01:21 Polycystic ovary syndrome 954037551 Active 2023 Hien Lamb MD Attn: [facility]cy [facility],[address] [facility], [place], [address], [place] [facility] 4 15:01:22 Obstructive sleep apnea syndrome 19663299 Active 2023 Hien Lamb MD Attn: Mercy martínez,[address] [facility], [place], [address], [place] [facility] 4 15:01:24 Obesity 280458639 Active 2023 Hien Lamb MD Attn: Jorgeopal martínez,[address] [facility], [place], [address], [place] [facility] 4 15:01:27 Hypothyroid ism 66966264 Active 2023 Hien Lamb MD Attn: Jorgeopal martínez,[address] [facility], [place], [address], [place] [facility] 4 16:01:25 Motion sickness 95045213 Active 2023 Hien Lamb MD Attn: Jorgeopal martínez,[address] [facility], [place], [address], [place] [facility] 4 16:01:26 Sleep apnea 39724357 Active 2023 Hien Lamb MD Attn: Jorgeopal martínez,[address] [facility], [place], [address], [place] [facility] 4 16:01:42 Prediabetes 461157906 Active 2024 Hien Lamb MD Attn: Mercy tanya,[address] [facility], [place], [address], [place] [facility] 5 16:48:14 Diabetes mellitus 43177213 Active 2024 Fco Butterfield [place] null, [place] [facility] 5 12:14:40 Obese class III 534320725 Active 2024 Fco Butterfield [place] null, [place] [facility] 5 12:14:42 Problem Notes None recorded. Procedures Surgical History Date Name Laterality Status Provider Name and Address Organization Details Recorded Time 05/05/20 18 Endometrial Ablation completed Lizy Garcia [facility] 05/12/2018 15:39:51 04/15/20 18 HYSTEROSCOPY, WITH ENDOMETRIAL ABLATION (SURG) completed Keo Garcia [facility] 05/12/2018 18:06:25 04/04/20 18 Date of Last Pap Smear completed Rukhsana Haas MA [facility] 04/04/2018 16:38:08 09/13/19 18 ligation of bilateral fallopian tubes completed Sherly Worthy MA [facility] 07/05/2018 15:19:22 01/12/20 17 Carpal tunnel surgery completed Kristi Rodriguez MA [facility] 04/04/2018 16:30:19 04/08/20 04 delivery completed Sherly Worthy MA [facility] 07/05/2018 15:41:31 04/11/20 01 delivery completed Sherly Worthy MA [facility] 07/05/2018 15:41:26 10/04/18 99 delivery completed Sherly Worthy MA [facility] 07/05/2018 15:41:19 08/12/19 97 delivery completed Sherly Worthy MA [facility] 07/05/2018 15:40:57 Imaging Results None recorded. Procedure Notes None recorded. Medical Equipment None Reported. Allergies No known drug allergies Medications Name Sig Start Date Stop Date Status Note LastModified by Organization Details LastModified Time Prescript ion - Prior Authoriza tion Request active Not Available Not Available Not Available multivita min tablet Take 1 tablet every day by oral route. 11/23 completed Not Available Not Available Not Available cyclobenz aprine 10 mg tablet 04/04 completed Not Available Not Available Not Available amoxicill in 500 mg capsule TAKE 1 CAPSULE BY MOUTH 4 TIMES DAILY UNTIL GONE 11/23 completed Not Available Not Available Not Available metformin 500 mg tablet TAKE 1 TABLET BY MOUTH TWICE DAILY active Not Available Not Available No t Available hydrocodo ne 7.5 mg-ibupro fen 200 mg tablet 04/04 completed Not Available Not Available Not Available BD Alcohol Swabs Apply 1 pad every day by topical route for 30 days. 11/23 completed Not Available Not Available Not Available carvedilo l 25 mg tablet TAKE 1 TABLET BY MOUTH TWICE DAILY 2024 active Not Available Not Available Not Avai lable clonidine HCl 0.1 mg tablet TAKE 1 TABLET BY MOUTH TWICE DAILY active Not Available Not Available No t Available clindamyc in HCl 300 mg capsule TAKE 1 CAPSULE BY MOUTH THREE TIMES DAILY FOR 7 DAYS 11/23 completed Not Available Not Available Not Available atorvasta tin 10 mg tablet TAKE 1 TABLET BY MOUTH EVERY DAY active Not Available Not Available No t Available ibuprofen 800 mg tablet 11/23 completed Not Available Not Available Not Available fluconazo le 150 mg tablet Take 1 tablet by oral route. 11/23 completed Not Available Not Available Not Available metronida zole 0.75 % (37.5 mg/5 gram) vaginal gel Insert 1 applicat orful every day by vaginal route for 5 days. 11/23 completed Not Available Not Available Not Available ondansetr on HCl 4 mg tablet TAKE 1 TABLET BY MOUTH EVERY 8 HOURS active Not Available Not Available No t Available prednison e 20 mg tablet TAKE 2 TABLETS BY MOUTH DAILY active Not Available Not Available No t Available penicilli n V potassium 500 mg tablet Take 1 tablet twice a day by oral route for 10 days. 11/23 completed Not Available Not Available Not Available meclizine 12.5 mg tablet TAKE 1 TABLET BY MOUTH THREE TIMES DAILY NEEDED FOR DIZZINES S 02/28 completed Not Available Not Available Not Available metronida zole 500 mg tablet Take 1 tablet twice a day by oral route for 10 days. 11/23 completed Not Available Not Available Not Available acetamino phen 300 mg-codein e 30 mg tablet TAKE 1 TABLET BY MOUTH FOUR TIMES DAILY NEEDED FOR PAIN 02/15 completed Patient stated she is no longer taking this medicati on Not Available Not Available Not Available amlodipin e 5 mg tablet TAKE 1 TABLET BY MOUTH ONCE DAILY 11/23 completed Not Available Not Available Not Available ciproflox acin 500 mg tablet 04/04 completed Not Available Not Available Not Available tramadol 50 mg tablet TAKE 1 TABLET BY MOUTH 4 TIMES DAILY NEEDED FOR KNEE PAIN active Not Available Not Available No t Available Condoms-P rem Lubricate d Take 1 device by miscell. route. 11/23 completed Not Available Not Available Not Available spironola ctone 25 mg tablet TAKE 1 TABLET BY MOUTH ONCE DAILY 11/23 completed Not Available Not Available Not Available oxycodone -acetamin ophen 5 mg-325 mg tablet 11/23 completed Not Available Not Available Not Available imiquimod 5 % topical cream packet APPLY TO THE AFFECTED AREA(S) BY TOPICAL ROUTE 5 TIMES PER WEEK 11/23 completed Not Available Not Available Not Available levothyro xine 50 mcg tablet TAKE 1 TABLET BY MOUTH DAILY 2024 active Not Available Not Available Not Avai lable metformin 1,000 mg tablet TAKE 1 TABLET BY MOUTH TWICE DAILY 11/23 completed Not Available Not Available Not Available nystatin 100,000 unit/gram topical cream APPLY TO THE AFFECTED AREA(S) BY TOPICAL ROUTE 2 TIMES PER DAY 11/23 completed Not Available Not Available Not Available Valtrex 500 mg tablet Take 1 tablet twice a day by oral route for 7 days. 2024 active Not Available Not Available Not Avai lable norethind hiren acetate 5 mg tablet TAKE 1 TABLET BY MOUTH EVERY DAY 11/23 completed Not Available Not Available Not Available lisinopri l 10 mg-hydroc hlorothia zide 12.5 mg tablet TAKE 1 TABLET BY MOUTH DAILY active Not Available Not Available No t Available ibuprofen 600 mg tablet Take 1 tablet 3 times a day by oral route for 15 days. 2024 active Not Available Not Available Not Avai lable scopolami ne 1 mg over 3 days transderm al patch APPLY PATCH TOPICALL Y 4 HOURS BEFORE TRAVEL AND CHANGE PATCH EVERY 72 HOURS 02/28 completed Not Available Not Available Not Available SSD 1 % topical cream APPLY A 1/16 INCH (1.5 MM) THICK LAYER TO ENTIRE BURN AREA BY TOPICALR OUTE 2 TIMES PER DAY 11/23 completed Not Available Not Available Not Available naproxen 500 mg tablet TAKE 1 TABLET BY MOUTH TWICE DAILY 11/23 completed Not Available Not Available Not Available diazepam 5 mg tablet TAKE 1 TABLET BY MOUTH ONE HOUR BEFORE PROCEDUR E (DO NOT DRIVE) active Not Available Not Available No t Available amoxicill in 875 mg-potass ium clavulana te 125 mg tablet TAKE 1 TABLET BY MOUTH TWICE DAILY 11/23 completed Not Available Not Available Not Available Estrace 0.01% (0.1 mg/gram) vaginal cream Insert 0.5 g twice a week by vaginal route. 11/23 completed Not Available Not Available Not Available Blood Glucose Test strips Take 1 strip every day by miscell. route for 30 days. 11/23 completed Not Available Not Available Not Available chlorhexi dine gluconate 0.12 % mouthwash SWISH AND SPIT 15 ML BY MOUTH TWICE DAILY 11/23 completed Not Available Not Available Not Available Calcium with Vitamin D 600 mg-10 mcg (400 unit) tablet Take 1 tablet twice a day by oral route. 11/23 completed Not Available Not Available Not Available OneTouch Delica Lancets 33 gauge 11/23 completed Not Available Not Available Not Available Duavee 0.45 mg-20 mg tablet Take 1 tablet every day by oral route. 11/23 completed Not Available Not Available Not Available OneTouch Ultra Blue Test Strip 11/23 completed Not Available Not Available Not Available OneTouch Ultra2 Meter 11/23 completed Not Available Not Available Not Available Ozempic 1 mg/dose (4 mg/3 mL) subcutane ous pen injector INJECT 1MG UNDER THE SKIN ONCE A WEEK active Not Available Not Available No t Available Ozempic 2 mg/dose (8 mg/3 mL) subcutane ous pen injector INJECT 2 MG SUBCUTAN EOUSLY ONCE A WEEK 02/15 completed Patient stated she is taking 1mg/ dose (4mg/3mL ) instead of 2mg Not Available Not Available Not Available Ozempic 0.25 mg or 0.5 mg (2 mg/3 mL) subcutane ous pen injector INJECT 0.25 MG SUBCUTAN EOUSLY ONCE A WEEK 11/23 completed Not Available Not Available Not Available Vitals Date Recorded Body height Body mass index (BMI) Body weight Heart rate Oxygen saturation Systolic And Diastolic Provider Name and Address Organization Details Last Updated DateTime 5 167.64 cm 44.5 kg/m2 899735. 78 g 81 /min 96 % 148/90 mm[Hg] Ivette Crandall MA [facility] 11:21:01 Social History Question Answer Notes LastModified by Organizat ion Details LastModified Time Tobacco Smoking Status Never Smoker JASSON Jimenez, [facility] 04/04/2018 16:29:24 Do You Have An Advance Directive? No [email or web address] Information not available 07/05/2018 Are You Blind Or Do You Have Difficulty Seeing? No Information not available 06/14/2024 Is Blood Transfusion Acceptable In An Emergency? Yes [email or web address] Information not available 07/05/2018 What Is Your Level Of Caffeine Consumption? Moderate Coffee In Am Hot Tea At Night [email or web address] Information not available 07/05/2018 How Much Tobacco Do You Chew? None [email or web address] Information not available 07/05/2018 In The 14 Days Before Symptom Onset, Have You Had Close Contact With A Laboratory-confir med COVID-19 While That Case Was Ill? No Information not available 06/14/2024 In The 14 Days Before Symptom Onset, Have You Had Close Contact With A Person Who Is Under Investigation For COVID-19 While That Person Was Ill? No Information not available 06/14/2024 Have You Been To An Area Known To Be High Risk For COVID-19? No Information not available 06/14/2024 Are You Deaf Or Do You Have Serious Difficulty Hearing? No Information not available 06/14/2024 What Type Of Diet Are You Following? REGULAR [email or web address] Information not available 07/05/2018 Which Illicit Or Recreational Drugs Have You Used? Denies [email or web address] Information not available 07/05/2018 Education 2 Year College [email or web address] Information not available 07/05/2018 Are There Any Guns Present In Your Home? No Information not available 06/14/2024 Live Alone Or With Others? With Others [email or web address] Information not available 07/05/2018 What Was The Date Of Your Most Recent Tobacco Screening? 05/30/2025 [email or web address] Information not available 05/30/2025 How Many Children Do You Have? 4 [email or web address] Information not available 07/05/2018 Performs Monthly Self-breast Exam? Yes [email or web address] Information no t available 07/05/2018 Do You Use Protection During Sex? No [email or web address] Information not available 07/05/2018 What Is Your Relationship Status? Information not available 07/05/2018 Do You Use Your Seat Belt Or Car Seat Routinely? Yes Information not available 06/14/2024 Seat Belts Used Routinely Yes [email or web address] Information not available 07/05/2018 Are You Sexually Active? Yes [email or web address] Information not available 07/05/2018 Do You Have Smoke And Carbon Monoxide Detectors In Your Home? Yes Information not available 06/14/2024 Are You Passively Exposed To Smoke? No [email or web address] Information no t available 03/05/2025 How Much Tobacco Do You Smoke? No Information not available 07/05/2018 Do You Use Sunscreen Routinely? No [email or web address] Information not available 07/05/2018 Has Tobacco Cessation Counseling Been Provided? No Information not available 02/28/2025 How Many Years Have You Smoked Tobacco? 0 [email or web address] Information not available 07/05/2018 Sex: Female Functional Status Question Answer Note LastModified by Organizat ion Details LastModified Time Do you use any illicit or recreational drugs? No Information not available 06/14/2024 Do you or have you ever used any other forms of tobacco or nicotine? No Information not available 06/14/2024 What is your level of alcohol consumption? None [email or web address] Information not available 07/05/2018 Are you currently employed? Yes Information not available 07/05/2018 Are you able to care for yourself independently? Yes Information not available 06/14/2024 What is your occupation? [employer] [email or web address] Information not available 07/05/2018 What is your exercise level? Occasional [email or web address] Information not available 07/05/2018 Mental Status None recorded. Family History Relationship Description Onset Age of this Age Resolved Age Notes LastModified by Organization Details LastModified Time Sister Malignant neoplasm of ovary 27 [email or web address] Not available 07/05 15:36:36 Sister Hysterectomy all sister s except for one have had to have hyster ectomy before the age of 3030 years old. [email or web address] Not available 07/05/2018 15:37:49 Mother Malignant neoplasm of uterus [email or web address] Not available 07/05 15:37:10 Maternal Aunt Malignant neoplasm of uterus [email or web address] Not available 07/05 15:37:10 Maternal Grandfather Diabetes mellitus type 1 lost eyesig ht due to diabet es [email or web address] Not available 07/05/2018 15:38:13 Unspecified Relation Hypertensive disorder richards side of family [email or web address] Not available 07/05/2018 15:38:35 Unspecified Relation Malignant neoplasm of vulva cousin on dads side [email or web address] Not available 07/05/2018 15:39:12 Paternal Grandmother Endometriosi s (clinical) [email or web address] Not available 15:38:47 Medical History Condition Response High Blood Pressure Y Breast Cancer N Thyroid Problems Y Kidney or Bladder Problems N Lung Disease N Depression N Blood Clots N GI Problems N Acne N Breast Problem Y Eating Disorder N Anemia Y Anesthesia Complications N Headaches/Migraines Y Ovarian Cancer N Diabetes Y Anxiety Disorder N Muscle, Joint, or Bone Problems N Blood Transfusions Y Seizures/Epilepsy N Polyps N Infertility N Acid Reflux (GERD) Y Cancer N Abuse/Domestic Violence N Asthma N Endometriosis N High Cholesterol N Hepatitis N Liver Disease N Heart Disease N Pre-Eclampsia N Osteoporosis N Gynecological History Statement/Question Response Abnormal Pap Y Flow Heavy Date of LMP 02/20/2025 STIs/STDs Y HPV Vaccine N Duration of Flow (days) 3 Age at Menarche 11 Current Control Method Tubal Ligat ion Age at First Child 17 Frequency of Cycle (Q days) Sexually Active? Y Menses Monthly N Date of Last Pap Smear 04/04/2018 Sexual Problems? Y LMP Approximate Desired Control Method Sterilizati on Obstetrics History GPAL:G 4 P 3 1 0 4 Type Value Multiple Births 0 Full Term 3 Induced 0 Spontaneous 0 Premature 1 Living 4 Ectopics 0 Total 4 Immunizations Vaccine Type Date Status Note Provider Nam e and Address Organization Details Recorded Time COVID-19, mRNA, LNP-S, PF, 30 mcg/0.3 mL dose 03/18/2021 completed JASSON [place], [place] - [facility] 12/08/2024 11:12:29 COVID-19, mRNA, LNP-S, PF, 30 mcg/0.3 mL dose 03/25/2021 completed JASSON [place], [place] [facility] 12/08/2024 11:12:29 COVID-19, mRNA, LNP-S, PF, 30 mcg/0.3 mL dose 04/18/2021 completed Fco Butterfield [place] null, [place] [facility] 12/08/2024 11:12:29 COVID-19, mRNA, LNP-S, PF, 30 mcg/0.3 mL dose, gavin-sucrose 12/23/2021 completed Fco Butterfield [place], [place] [facility] 12/08/2024 11:12:29 Past Encounters Encounter ID Performer Location Encounter Start Date Encounter Closed Date Diagnosis/Indication Diagnosis SNOMED-CT Code Diagnosis ICD10 Code Diagnosis IMO Codes Diagnosis Note [id number] Hien Lamb MD [facility] (Adult Med) [address] [place] [phone] 05/30/2025 10:58:09 05/30/2025 12:10:34 Obese class III 066863954 E66.813 E66.3 6865231187 BMI 44.5 Diabetes mellitus 453858 09 E11.9 67594 Essential hypertension 94151848 I10 Health Concerns Section Related Observation LastModified by Organization Detai ls LastModified Time None Recorded Concern Status LastModified by Organization Details LastModified Time None Recorded Payers Encounter Date Sequence Insurance Name Policy Number Policy Vigil Covered Member ID Vigil Member ID Guarantor Name 05/30/2025 2 [facility] (O) [id number] Carlos Justice [id number] Krupa Francis 05/30/2025 1 [facility] - [facility] [id number] Krupa Francis [id number] Krupa Francis Notes Date Note Type Note Provider Name and Address Organization Details Recorded Time 05/30/2025 text/html Still having problems with blood pressure Hien Lamb MD Attn: [facility] [place], [address], [place] [facility] 06/17/2025 15:22:53 OBGyn Episode No OBEpisode recorded.
--- OUTSIDE RECORDS SUMMARY | 2025-08-07 00:28 | XMS_ITS | Continuity of Care Document ---
Author Organization [place] - [place] [employer] [facility], [facility] [place] Address [address], [address] [place] [address] Care Team Providers Care Metal Painter Name Role Phone HIEN SAUL Primary Care Provider [phone] HIEN SAUL Referring Provider EV SANDHU Textile Scrap Salvager Unavailable Assessment Encounter Date Assessment Date Assessment LastModified by Organization Details LastModified Time 07/30/2025 07/30/2025 45-year-old female presents for follow-up [...] 4 weeks, anticipate MMI at that time. [email or web address] Not available 07/30/2025 14:15:32 Plan of Treatment Reminders Order Date Submit Date Provider Last Modified By Organization Details Last Modified Time Details Appointments Any 5 025 11:30AM Kanu Morris MD Not available Not available Not available Lab None record ed. Referral None record ed. Procedures None record ed. Surgeries None record ed. Imaging None record ed. Medication Orders None record ed. Patient TargetsNo targets recorded. Patient InstructionsNo instructions recorded. Reason for Referral None Reported. Problems Name Problem SNOMED Code Status Onset Date Resolution Date Notes Provider Name and Address Organization Details Recorded Time Chronic tonsilliti s 81584881 Active 2021 Not Available [facility] 3 23:00:26 Polycystic ovary syndrome 688574996 Active 2021 Not Available [facility] 3 23:00:26 Essential hypertensi on 88140040 Active 2021 Not Available [facility] 3 23:00:26 Herpes simplex type 1 infection 865075391 Active 2021 Not Available [facility] 3 23:00:26 Motion sickness 39268911 Active 2021 Not Available [facility] 3 23:00:26 Obesity 032332566 Active 2021 Not Available [facility] 3 23:00:26 Otitis media 53479248 Active 2021 Not Available [facility] 3 23:00:26 Chest pain 61144804 Active 2021 Not Available [facility] 3 23:00:26 Hypothyroi dism 65348613 Active 2021 Not Available [facility] 3 23:00:26 Headache 92493851 Active 2021 Not Available [facility] 3 23:00:26 Thyroid stimulatin g hormone level above reference range 834042862 Active 2021 Not Available [facility] 3 23:00:26 Obstructiv e sleep apnea syndrome 09324584 Active 2022 Not Available [facility] 3 23:00:26 Fatigue 95549963 Active 2022 Not Available [facility] 3 23:00:26 Blood glucose outside reference range 225960600 Active 2022 Not Available [facility] 3 23:00:26 Type 2 diabetes mellitus without complicati on 923786090 Active 2022 [facility] 3 10:38:40 Type 2 diabetes mellitus 02494468 Active 2024 Dominick Mcdowell, DPM [address], [address], [place], [address] , [facility] [employer] [facility] 5 11:33:39 Plantar fasciitis 012549005 Active 2024 Dominick Mcdowell, DPM [address], [address], [place], [address] , [facility] [employer] [facility] 5 11:33:45 Pain of right knee joint 9608327859420 00 Active 2024 Ewa Martinez CNA [facility], [facility] [employer] [facility] 5 11:34:13 Notes:[facility] split night sleep study 06/11/22 AHI = [...] Details Recorded Time completed Ewa Martinez CNA [place] [employer] [facility] 05/21/2025 11:43:12 arthroscopy of shoulder completed Ewa Martinez CNA [facility] - [place] [facility] [employer] [facility] 05/21/2025 11:43:30 Carpal tunnel surgery completed Ewa Martinez CNA [facility] [employer] [facility] 05/21/2025 11:43:22 destruction of lesion of uterus completed Not Available [facility] 11/12/2022 00:26:54 Tubal Ligation completed [facility] Available [facility] 11/12/2022 00:26:54 Imaging Results None recorded. [...] Updated DateTime 07/30/2025 167.64 cm 44.4 kg/m2 434878.9 g 2 ALVARO Wolfe [place] [facility] 07/30/2025 11:59:24 Social History Question Answer Notes LastModified by Organizat ion Details LastModified Time Tobacco Smoking Status Never Smoker Not Available [facility] 11/12/2022 00:26:33 Do You Have An Advance Directive? No MIGRATION.32954 51639 Information not available 11/12/2022 If You Are , What Was Your Level Of Alcohol Consumption Prior To ? None MIGRATION.02480 25433 Information not available 11/12/2022 What Is Your Level Of Caffeine Consumption? Occasional Coffee MIGRATION.90738 36597 Information not available 11/12/2022 In The 14 Days Before Symptom Onset, Have You Had Close Contact With A Laboratory-confi rmed COVID-19 While That Case Was Ill? No MIGRATION.68499 33889 Information not available 11/12/2022 In The 14 Days Before Symptom Onset, Have You Had Close Contact With A Person Who Is Under Investigation For COVID-19 While That Person Was Ill? No MIGRATION.14323 87330 Information not available 11/12/2022 What Type Of Diet Are You Following? REGULAR Low Carb MIGRATION.18705 64058 Information not available 11/12/2022 What Is The Highest Grade Or Level Of School You Have Completed Or The Highest Degree You Have Received? HW43944-1 MIGRATION.88208 39859 Information not available 11/12/2022 Have There Been Any Changes To Your Family Or Social Situation? No MIGRATION.49613 45560 Information not available 11/12/2022 Are There Any Guns Present In Your Home? No MIGRATION.04081 48462 Information not available 11/12/2022 Do You Use Insect Repellent Routinely? No MIGRATION.82399 67426 Information not available 11/12/2022 Where Do You Live? [facility] MIGRATION.94760 74296 Information not available 11/12/2022 Do You Have A Medical Power Of Correspondence Specialist? No MIGRATION.52427 84994 Information not available 11/12/2022 What Was The Date Of Your Most Recent Tobacco Screening? 07/02/2025 [email or web address] Information not available 07/02/2025 Do You Have Any Pets? Yes Cats And Ddogs MIGRATION.66374 79033 Information not available 11/12/2022 What Is Your Relationship Status? MIGRATION.55006 34817 Information not available 11/12/2022 Do You Use Your Seat Belt Or Car Seat Routinely? Yes MIGRATION.83943 38105 Information not available 11/12/2022 Do You Have Smoke And Carbon Monoxide Detectors In Your Home? Yes MIGRATION.71139 09805 Information not available 11/12/2022 Are You Passively Exposed To Smoke? No MIGRATION.61533 69728 Information not available 11/12/2022 Are There Any Smokers In Your House? No MIGRATION.73128 86199 Information not available 11/12/2022 What Types Of Sporting Activities Do You Participate In? None MIGRATION.72508 35245 Information not available 11/12/2022 Do You Use Sunscreen Routinely? No MIGRATION.60815 47529 Information not available 11/12/2022 Has Tobacco Cessation Counseling Been Provided? No MIGRATION.78637 93745 Information not available 11/12/2022 Have You Recently Traveled Abroad? No MIGRATION.96573 16789 Information not available 11/12/2022 Do You Have Any Dietary Restrictions? No MIGRATION.44662 72685 Information not available 11/12/2022 Sex: Female Functional Status Question Answer Note LastModified by [employer] ion Details LastModified Time Do you use any illicit or recreational drugs? No MIGRATION.70609041 26 Information not available 11/12/2022 Do you or have you ever used any other forms of tobacco or nicotine? No MIGRATION.15335117 26 Information not available 11/12/2022 What is your level of alcohol consumption? None MIGRATION.36658433 26 Information not available 11/12/2022 What is your occupation? [employer] MIGRATION.85467632 26 Information not available 11/12/2022 What is your exercise level? None MIGRATION.76508499 26 Information not available 11/12/2022 Mental Status Question Answer Note LastModified by Organizat ion Details LastModified Time Do you feel stressed (tense, restless, nervous, or anxious, or unable to sleep at night)? [id number] job MIGRATION.585664535 6 Information not available 11/12/2022 Family History Relationship Description Onset Age of this Age Resolved Age Notes LastModified by Organization Details LastModified Time Mother Malignant neoplasm of ovary MIGRATION.728 [id number] Not available 11/12/2022 00:26:55 Father History of malignant neoplasm of uterine body MIGRATION.467 [id number] Not available 11/12/2022 00:26:55 Daughter Anemia 18 [email or web address] Not availa ble 03/19/2023 12:02:34 Daughter Anemia [...] HAVE YOU BEEN HOSPITALIZED OR SEEN IN [facility] ER IN THE PAST YEAR ? N ATHEROSCLEROSIS [...] mcg/0.3 mL dose 04/18/2021 completed Not Available [facility] 3 23:00:26 COVID-19, mRNA, LNP-S, PF, 30 mcg/0.3 mL dose 03/18/2021 completed Not Available [facility] 3 23:00:26 Past Encounters Encounter ID Performer Location Encounter Start Date Encounter Closed Date Diagnosis/Indication Diagnosis SNOMED-CT Code Diagnosis ICD10 Code Diagnosis IMO Codes Diagnosis Note [id number] Kanu Morris MD [place] [address] 07/02/2025 11:51:02 07/02/2025 12:30:56 Pain of right knee joint 7783008455 79318 M25.561 [id number] Kanu Morris MD [place] [address] [address] 07/30/2025 11:53:49 07/30/2025 12:29:54 Pain of right knee joint 3994892794 49741 M25.561 385318 Health Concerns Section Related Observation LastModified by Organization Detai ls LastModified Time None Recorded Concern Status LastModified by Organization Details LastModified Time None Recorded Payers Encounter Date Sequence Insurance Name Policy Number Policy Vigil Covered Member ID Vigil Member ID Guarantor Name 07/30/2025 [employer] Krupa Justice OBGytami Episode No OBEpisode recorded.
--- OUTSIDE RECORDS SUMMARY | 2025-08-07 00:28 | XMS_ITS | Continuity of Care Document ---
Author Organization [place] - [place] [employer] [facility], [facility] [place] Address [address], [address] [place] [address] Care Team Providers Care Pilot Highway Patrol Name Role Phone HIEN SAUL Primary Care Provider HIEN SAUL Referring Provider EV SANDHU Special Agent Unavailable Assessment Encounter Date Assessment Date Assessment LastModified by Organization Details LastModified Time 05/21/2025 05/21/2025 45-year-old female presents for evaluation of her right knee. This is a work comp injury. 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 She has a 10-12 hour shift which she usually involves [phone] steps a day. She was moving a [...] her risk infection and other complication risk. [email or web address] Not available 05/21/2025 12:23:49 Plan of Treatment Reminders Order Date Submit [...] instructions recorded. Reason for Referral None Reported. Results Created Date Observation Date Name Description Value Unit Range Abnormal Flag Note LastModifiedBy Organization Detail LastModifiedTime 05/17/20 25 04/23/2025 MRI, knee, w/o contr ast No observ ation record ed. [email or web address] Not Available 12/2024 17:37:37 Result Notes None recorded. Problems Name Problem SNOMED Code Status Onset Date Resolution Date Notes Provider Name and Address Organization Details Recorded Time Chronic tonsilliti s 12907371 Active 2021 Not Available [facility] 3 23:00:26 Polycystic ovary syndrome 657486075 Active 2021 Not Available [facility] 3 23:00:26 Essential hypertensi on 20629038 Active 2021 Not Available [facility] 3 23:00:26 Herpes simplex type 1 infection 584373519 Active 2021 Not Available [facility] 3 23:00:26 Motion sickness 70461045 Active 2021 Not Available [facility] 3 23:00:26 Obesity 889950872 Active 2021 Not Available [facility] 3 23:00:26 Otitis media 30406674 Active 2021 Not Available [facility] 3 23:00:26 Chest pain 60813379 Active 2021 Not Available [facility] 3 23:00:26 Hypothyroi dism 70245960 Active 2021 Not Available [facility] 3 23:00:26 Headache 31719408 Active 2021 Not Available [facility] 3 23:00:26 Thyroid stimulatin g hormone level above reference range 712346853 Active 2021 Not Available [facility] 3 23:00:26 Obstructiv e sleep apnea syndrome 64779131 Active 2022 Not Available [facility] 3 23:00:26 Fatigue 36530357 Active 2022 Not Available [facility] 3 23:00:26 Blood glucose outside reference range 388344645 Active 2022 Not Available [facility] 3 23:00:26 Type 2 diabetes mellitus without complicati on 394453533 Active 2022 Lila martin, [facility] 3 10:38:40 Type 2 diabetes mellitus 33981975 Active 2024 Dominick Mcdowell DPM [address], [address], [address] , [facility] 5 11:33:39 Plantar fasciitis 351363227 Active 2024 Dominick Mcdowell DPM [address] [facility], [address], [place], [address] , [facility] 11:33:45 Pain of right knee joint 2286688838828 00 Active 2024 JOANA Holden [place] - [facility] 11:34:13 Notes:[facility] split night sleep study 06/11/22 AHI = [...] Details Recorded Time completed Ewa Martinez CNA [place] [facility] [place] [facility] 05/21/2025 11:43:12 arthroscopy of shoulder completed Ewa Martinez CNA [place] [facility] 05/21/2025 11:43:30 Carpal tunnel surgery completed Ewa Martinez CNA [facility] 05/21/2025 11:43:22 destruction of lesion of uterus completed Not Available [facility] 11/12/2022 00:26:54 Tubal Ligation completed Not Available [facility] 11/12/2022 00:26:54 Imaging Results None recorded. [...] Updated DateTime 05/21/2025 167.64 cm 44.4 kg/m2 259891.9 g JOANA [place]en [facility] [place] [employer] 05/21/2025 11:39:09 Social History Question Answer Notes LastModified by Organizat ion Details LastModified Time Tobacco Smoking Status Never Smoker Not Available [employer] 11/12/2022 00:26:33 Do You Have An Advance Directive? No MIGRATION.18693 03706 Information not available 11/12/2022 If You Are , What Was Your Level Of Alcohol Consumption Prior To ? None MIGRATION.58894 43621 Information not available 11/12/2022 What Is Your Level Of Caffeine Consumption? Occasional Coffee MIGRATION.06679 88351 Information not available 11/12/2022 In The 14 Days Before Symptom Onset, Have You Had Close Contact With A Laboratory-confi rmed COVID-19 While That Case Was Ill? No MIGRATION.23930 81563 Information not available 11/12/2022 In The 14 Days Before Symptom Onset, Have You Had Close Contact With A Person Who Is Under Investigation For COVID-19 While That Person Was Ill? No MIGRATION.34230 54526 Information not available 11/12/2022 What Type Of Diet Are You Following? REGULAR Low Carb MIGRATION.10897 19800 Information not available 11/12/2022 What Is The Highest Grade Or Level Of School You Have Completed Or The Highest Degree You Have Received? EF84051-1 MIGRATION.22717 33843 Information not available 11/12/2022 Have There Been Any Changes To Your Family Or Social Situation? No MIGRATION.47489 72089 Information not available 11/12/2022 Are There Any Guns Present In Your Home? No MIGRATION.52833 06678 Information not available 11/12/2022 Do You Use Insect Repellent Routinely? No MIGRATION.34422 21640 Information not available 11/12/2022 Where Do You Live? [facility] MIGRATION.83130 38968 Information not available 11/12/2022 Do You Have A Medical Power Of Home Hospice Rn? No MIGRATION.36616 74720 Information not available 11/12/2022 What Was The Date Of Your Most Recent Tobacco Screening? 07/02/2025 Information not available 07/02/2025 Do You Have Any Pets? Yes Cats And Ddogs MIGRATION.73983 52914 Information not available 11/12/2022 What Is Your Relationship Status? MIGRATION.33386 20403 Information not available 11/12/2022 Do You Use Your Seat Belt Or Car Seat Routinely? Yes MIGRATION.93795 95034 Information not available 11/12/2022 Do You Have Smoke And Carbon Monoxide Detectors In Your Home? Yes MIGRATION.62567 47609 Information not available 11/12/2022 Are You Passively Exposed To Smoke? No MIGRATION.31888 11931 Information not available 11/12/2022 Are There Any Smokers In Your House? No MIGRATION.29911 13070 Information not available 11/12/2022 What Types Of Sporting Activities Do You Participate In? None MIGRATION.99498 13299 Information not available 11/12/2022 Do You Use Sunscreen Routinely? No MIGRATION.27673 61239 Information not available 11/12/2022 Has Tobacco Cessation Counseling Been Provided? No MIGRATION.89857 11847 Information not available 11/12/2022 Have You Recently Traveled Abroad? No MIGRATION.78040 73814 Information not available 11/12/2022 Do You Have Any Dietary Restrictions? No MIGRATION.74145 88699 Information not available 11/12/2022 Sex: Female Functional Status Question Answer Note LastModified by [employer] Details LastModified Time Do you use any illicit or recreational drugs? No MIGRATION.44635050 26 Information not available 11/12/2022 Do you or have you ever used any other forms of tobacco or nicotine? No MIGRATION.37415759 26 Information not available 11/12/2022 What is your level of alcohol consumption? None MIGRATION.88663813 26 Information not available 11/12/2022 What is your occupation? [employer] MIGRATION.53481592 26 Information not available 11/12/2022 What is your exercise level? None MIGRATION.61303751 26 Information not available 11/12/2022 Mental Status Question Answer Note LastModified by [employer] Details LastModified Time Do you feel stressed (tense, restless, nervous, or anxious, or unable to sleep at night)? [id number] job MIGRATION.919910127 6 Information not available 11/12/2022 Family History Relationship Description Onset Age of this Age Resolved Age Notes LastModified by Organization Details LastModified Time Mother Malignant neoplasm of ovary MIGRATION.833 3897324 Not available 11/12/2022 00:26:55 Father History of malignant neoplasm of uterine body MIGRATION.436 2451895 Not available 11/12/2022 00:26:55 Daughter Anemia 18 [email or web address] Not availa ble 03/19/2023 12:02:34 Daughter Anemia 14 IS 24 NOW [email or web address] Not available 03/19/2023 12:02:44 Mother Diabetes mellitus [...] ARTERY DISEASE (CAD) N ADDICTION CONCERNS N Impotence N ENDOMETRIOSIS Y USE OF BLOOD THINNERS N SKIN PROBLEMS [...] APNEA N CHICKENPOX N INFECTIOUS DISEASE N PROSTATE N HEART ARRHYTHMIA N INSOMNIA Y HIGH CHOLESTEROL / HYPERLIPIDEMIA N EYE PROBLEMS N HYPERTHYROIDISM N EDEMA N CHRONIC PAIN SYNDROME N CONSTIPATION N CAROTID BLOCKAGE N HAVE YOU BEEN HOSPITALIZED OR SEEN IN [facility] ER IN THE PAST YEAR ? N [...] N ALZHEIMER'S DISEASE N Brain Problems N DEMENTIA N HERPES N SEIZURES/EPILEPSY N HEADACHES/MIGRAINES Y VASCULAR DISEASE N PACEMAKER N Blood Disorder N DIZZINESS N HEART DISEASE/HEART PROBLEMS N KIDNEY DISEASE N MULTIPLE SCLEROSIS N CANCER: SPECIFY N CARDIAC ARRHYTHMIA N ATRIAL FIBRILLATION N Gall Stones N PULMONARY EMBOLISM N AUTOIMMUNE DISEASE N Gynecological HistoryNo gynecological history recorded. Obstetrics History GPAL:G 0 P 0 0 0 0 Immunizations Vaccine Type Date Status Note Provider Nam e and Address Organization Details Recorded Time COVID-19, mRNA, LNP-S, PF, 30 mcg/0.3 mL dose 04/18/2021 completed Not Available [facility] 3 23:00:26 COVID-19, mRNA, LNP-S, PF, 30 mcg/0.3 mL dose 03/18/2021 completed Not Available [facility] 3 23:00:26 Past Encounters Encounter ID Performer Location Encounter Start Date Encounter Closed Date Diagnosis/Indication Diagnosis SNOMED-CT Code Diagnosis ICD10 Code Diagnosis IMO Codes Diagnosis Note [id number] Kanu Morris MD [facility] [address], [address] [address] 05/21/2025 11:13:24 05/21/2025 12:16:00 Pain of right knee joint [id number] 13395 M25.561 [id number] Health Concerns Section Related Observation LastModified by Organization Detai ls LastModified Time None Recorded Concern Status LastModified by Organization Details LastModified Time None Recorded Payers Encounter Date Sequence Insurance Name Policy Number Policy Vigil Covered Member ID Vigil Member ID Guarantor Name 05/21/2025 [employer] Krupa Meza Vinh Krupa Meza Vinh OBGyn Episode No OBEpisode recorded.
--- OUTSIDE RECORDS SUMMARY | 2025-08-07 00:28 | XMS_ITS | Continuity of Care Document ---
Author Organization [place] - [facility] [employer] [facility], [facility] [place] Address [address], [address] [place] [address] Care Team Providers Care Home Care Companion Name Role Phone HIEN SAUL Primary Care Provider [phone] HIEN SAUL Referring Provider EV SANDHU Concrete Batcher Unavailable Assessment Encounter Date Assessment Date Assessment LastModified by Organization Details LastModified Time 07/02/2025 07/02/2025 HPI: 45 year old female [...] intermittnet pain and swelling. She works at [employer] and doesn't feel like she can return [...] answered. Patient verbalized understanding of treatment plan [email or web address] Not available 07/02/2025 13:28:06 Plan of Treatment Reminders Order Date Submit Date Provider Last Modified By Organization Details Last Modified Time Details Appointments Any 5 2024 11:30A M Kanu Morris MD Not available Not available Not available Lab None recorded. Referral physical therapist referral - Please schedule pt for R knee post op lateral meniscus tear. 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 Surgeries None recorded. Imaging None recorded. Medication Orders naproxen 500 mg tablet 2024 025 [id number], [address] [place], [place], [id number], 07/02/2025 16:04:16 Patient TargetsNo targets recorded. Patient InstructionsNo instructions recorded. Reason for Referral Physical Therapist Referral for Pain of right knee joint R knee post op Please schedule pt for R knee post op lateral meniscus tear. [facility] 07/02/25 Additional InfoInjury Date 03/21/2025Injured Body Part R KNEEWorker's Comp PHOEBE KINGdjuster [id number] Referring Physician: Alka Champagne, Orthopedic Surgery, Encounter Date: 07/02/2025 Problems Name Problem SNOMED Code Status Onset Date Resolution Date Notes Provider Name and Address Organization Details Recorded Time Chronic tonsilliti s 12532915 Active 2021 Not Available [facility] 3 23:00:26 Polycystic ovary syndrome 095831921 Active 2021 Not Available [facility] 3 23:00:26 Essential hypertensi on 58928273 Active 2021 Not Available [facility] 3 23:00:26 Herpes simplex type 1 infection 031638371 Active 2021 Not Available [facility] 3 23:00:26 Motion sickness 20683721 Active 2021 Not Available [facility] 3 23:00:26 Obesity 811568509 Active 2021 Not Available [facility] 3 23:00:26 Otitis media 78996827 Active 2021 Not Available [facility] 3 23:00:26 Chest pain 03243065 Active 2021 Not Available [facility] 3 23:00:26 Hypothyroi dism 57459234 Active 2021 Not Available [facility] 3 23:00:26 Headache 44508397 Active 2021 Not Available [facility] 3 23:00:26 Thyroid stimulatin g hormone level above reference range 858871813 Active 2021 Not Available [facility] 3 23:00:26 Obstructiv e sleep apnea syndrome 14367233 Active 2022 Not Available [facility] 3 23:00:26 Fatigue 72022666 Active 2022 Not Available [facility] 3 23:00:26 Blood glucose outside reference range 855691220 Active 2022 Not Available [facility] 3 23:00:26 Type 2 diabetes mellitus without complicati on 849150134 Active 2022 Lila martin [facility] 3 10:38:40 Type 2 diabetes mellitus 65076405 Active 2024 Dominick Mcdowell DPM [address], [address], [address] , [facility] 5 11:33:39 Plantar fasciitis 548878174 Active 2024 Dominick Mcdowell DPM [address] [facility], [address], [place], [address] , [facility] 11:33:45 Pain of right knee joint 4256258508236 00 Active 2024 JOANA Holden [place] [facility] 11:34:13 Notes:[facility] split night sleep study 06/11/22 [...] Address Organization Details Recorded Time completed Ewa Maritnez CNA [place] [facility] [employer] [facility] 05/21/2025 11:43:12 arthroscopy of shoulder completed Ewa Martinez CNA [place] [facility] [employer] [facility] 05/21/2025 11:43:30 Carpal tunnel surgery completed Ewa Martinez CNA [place] [facility] [employer] [facility] 05/21/2025 11:43:22 destruction of lesion of uterus completed Not Available [facility] 11/12/2022 00:26:54 Tubal Ligation completed Not Available [facility] 11/12/2022 00:26:54 Imaging Results None recorded. [...] Updated DateTime 07/02/2025 167.64 cm 44.4 kg/m2 360347.9 g 5 Dena Conte Joy [place] [facility] 07/02/2025 11:54:13 Social History Question Answer Notes LastModified by Organizat ion Details LastModified Time Tobacco Smoking Status Never Smoker Not Available [facility] 11/12/2022 00:26:33 Do You Have An Advance Directive? No MIGRATION.75010 31756 Information not available 11/12/2022 If You Are , What Was Your Level Of Alcohol Consumption Prior To ? None MIGRATION.12526 37865 Information not available 11/12/2022 What Is Your Level Of Caffeine Consumption? Occasional Coffee MIGRATION.68357 54002 Information not available 11/12/2022 In The 14 Days Before Symptom Onset, Have You Had Close Contact With A Laboratory-confi rmed COVID-19 While That Case Was Ill? No MIGRATION.36748 28815 Information not available 11/12/2022 In The 14 Days Before Symptom Onset, Have You Had Close Contact With A Person Who Is Under Investigation For COVID-19 While That Person Was Ill? No MIGRATION.14136 61845 Information not available 11/12/2022 What Type Of Diet Are You Following? REGULAR Low Carb MIGRATION.56223 56538 Information not available 11/12/2022 What Is The Highest Grade Or Level Of School You Have Completed Or The Highest Degree You Have Received? [id number] MIGRATION.29370 29196 Information not available 11/12/2022 Have There Been Any Changes To Your Family Or Social Situation? No MIGRATION.12586 54582 Information not available 11/12/2022 Are There Any Guns Present In Your Home? No MIGRATION.32099 24549 Information not available 11/12/2022 Do You Use Insect Repellent Routinely? No MIGRATION.40164 75240 Information not available 11/12/2022 Where Do You Live? [facility] MIGRATION.29711 71682 Information not available 11/12/2022 Do You Have A Medical Power Of Beef Tagger? No MIGRATION.95565 60044 Information not available 11/12/2022 What Was The Date Of Your Most Recent Tobacco Screening? 07/02/2025 [email or web address] Information not available 07/02/2025 Do You Have Any Pets? Yes Cats And Ddogs MIGRATION.27413 88552 Information not available 11/12/2022 What Is Your Relationship Status? MIGRATION.68201 13923 Information not available 11/12/2022 Do You Use Your Seat Belt Or Car Seat Routinely? Yes MIGRATION.23479 63801 Information not available 11/12/2022 Do You Have Smoke And Carbon Monoxide Detectors In Your Home? Yes MIGRATION.69682 18626 Information not available 11/12/2022 Are You Passively Exposed To Smoke? No MIGRATION.61994 87680 Information not available 11/12/2022 Are There Any Smokers In Your House? No MIGRATION.63773 86605 Information not available 11/12/2022 What Types Of Sporting Activities Do You Participate In? None MIGRATION.72913 60620 Information not available 11/12/2022 Do You Use Sunscreen Routinely? No MIGRATION.37261 17409 Information not available 11/12/2022 Has Tobacco Cessation Counseling Been Provided? No MIGRATION.98878 95550 Information not available 11/12/2022 Have You Recently Traveled Abroad? No MIGRATION.65809 21303 Information not available 11/12/2022 Do You Have Any Dietary Restrictions? No MIGRATION.70292 27923 Information not available 11/12/2022 Sex: Female Functional Status Question Answer Note LastModified by Organizat ion Details LastModified Time Do you use any illicit or recreational drugs? No MIGRATION.99102956 26 Information not available 11/12/2022 Do you or have you ever used any other forms of tobacco or nicotine? No MIGRATION.63836817 26 Information not available 11/12/2022 What is your level of alcohol consumption? None MIGRATION.64203667 26 Information not available 11/12/2022 What is your occupation? [employer] MIGRATION.11811097 26 Information not available 11/12/2022 What is your exercise level? None MIGRATION.62914479 26 Information not available 11/12/2022 Mental Status Question Answer Note LastModified by Organizat ion Details LastModified Time Do you feel stressed (tense, restless, nervous, or anxious, or unable to sleep at night)? [id number] job MIGRATION.591708420 6 Information not available 11/12/2022 Family History Relationship Description Onset Age of this Age Resolved Age Notes LastModified by Organization Details LastModified Time Mother Malignant neoplasm of ovary MIGRATION.136 [id number] Not available 11/12/2022 00:26:55 Father History of malignant neoplasm of uterine body MIGRATION.513 [id number] Not available 11/12/2022 00:26:55 Daughter Anemia 18 [email or web address] Not availa ble 03/19/2023 12:02:34 Daughter Anemia 14 IS 24 NOW [email or web address] Not available 03/19/2023 12:02:44 Mother Diabetes mellitus [...] DISEASE/DISORDER N HISTORY OF DRUG ABUSE N COPD N RADIATION / CHEMOTHERAPY N Other # 2 N BLOOD DISEASES [...] GLAUCOMA N FOOT PROBLEM N DIVERTICULITIS N CHICKENPOX N SLEEP APNEA N INFECTIOUS DISEASE N PROSTATE N HEART ARRHYTHMIA N INSOMNIA Y HIGH CHOLESTEROL / HYPERLIPIDEMIA N EYE PROBLEMS N HYPERTHYROIDISM N EDEMA N CHRONIC PAIN SYNDROME N CONSTIPATION N CAROTID BLOCKAGE N HAVE YOU BEEN HOSPITALIZED OR SEEN IN THE MEDICAL CENTER IN THE PAST YEAR ? [...] mcg/0.3 mL dose 04/18/2021 completed Not Available [facility] 3 23:00:26 COVID-19, mRNA, LNP-S, PF, 30 mcg/0.3 mL dose 03/18/2021 completed Not Available [facility] 3 23:00:26 Past Encounters Encounter ID Performer Location Encounter Start Date Encounter Closed Date Diagnosis/Indication Diagnosis SNOMED-CT Code Diagnosis ICD10 Code Diagnosis IMO Codes Diagnosis Note [id number] Kanu Morris MD [facility] [address], [address] [address] 07/02/2025 11:51:02 07/02/2025 12:30:56 Pain of right knee joint 3509289947 16063 M25.561 091554 Health Concerns Section Related Observation LastModified by Organization Detai ls LastModified Time None Recorded Concern Status LastModified by Organization Details LastModified Time None Recorded Payers Encounter Date Sequence Insurance Name Policy Number Policy Vigil Covered Member ID Vigil Member ID Guarantor Name 07/02/2025 [employer] Krupa Justice OBGyn Episode No OBEpisode recorded.
--- OUTSIDE RECORDS SUMMARY | 2025-08-07 00:28 | XMS_ITS | Data Portability ---
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 CBC CMP lipid T3-T4 TSH A1c UA. Needs screening colonoscopy. 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 teacher referral has been made we are awaiting them to call her set up mammogram needs to get her eye exam because of her diabetes and see me in a month [email or web address] Not available 03/11/2025 17:10:42 04/17/2025 04/17/2025 We will continue current therapy right now blood pressure looks good make sure that she is taking a medication wearing her CPAP see me back in 2 months [email or web address] Not available 05/14/2025 16:48:26 05/30/2025 05/30/2025 Cardiology referral see me in 3 months cardiology will give clearance [email or web address] Not available 06/17/2025 15:22:36 Plan of Treatment Reminders Order Date Submit Date Provider Last Modified By Organization Details Last Modified Time Details Appointments ANY 15 2024 10:45A nAiceto Lamb MD Not available Not available Not available Lab HbA1c (hemoglob in A1c), blood 2024 025 [facility], [address], [address], [place], [address], 05/31/2025 23:51:38 FSH (follicle -stimulat ing hormone), serum 2024 025 [facility], [address], [address], [place], [address], 03/06/2025 08:23:23 pap, IG + reflex HPV 2024 025 [facility], [address], [address], [place], [address], 03/07/2025 11:47:16 HbA1c (hemoglob in A1c), blood 2024 025 [facility], [address], [address], [place], [address], 03/03/2025 06:16:14 unlisted lab - sti profile, CT/NG 2024 025 [facility], [address], [address], [place], [address], 03/03/2025 06:16:11 T3, free, serum or plasma 2024 025 [facility], [address], [address], [place], [address], 03/03/2025 06:16:18 TSH, ultra-sen sitive, serum 2024 025 [facility], [address], [address], [place], [address], 03/03/2025 06:16:16 T4, free, serum 2024 025 [facility], [address], [address], [place], [address], 03/03/2025 06:16:19 lipid panel, serum 2024 025 [facility], [address] [place], [place] [address], [address], [place], [address], 03/03/2025 06:16:12 CBC w/ auto diff 2024 025 [facility], [address] [place], [place] [address], [address], [place], [address], 03/03/2025 06:16:17 CMP, serum or plasma 2024 025 [facility], [address] [place], [place] [address], [address], [place], [address], 03/03/2025 06:16:13 urinalysi s, complete 2024 025 [facility], [address] [place], [place] [address], [address], [place], [address], 03/03/2025 06:16:15 CMP, serum or plasma 2024 025 [facility], [address] [place], [place] [address], [address], [place], [address], 12/10/2024 06:44:09 lipid panel, serum 2024 025 [facility], [address] [place], [place] [address], [address], [place], [address], 12/10/2024 06:44:08 noninvasi ve colorecta l cancer DNA + occult blood screening , , stool [address] [facility], [address], [address], [place], [address], 02/28/2025 10:57:08 CBC w/ auto diff 2024 025 [facility] [address], [place], [address], 12/10/2024 06:44:12 TSH, ultra-sen sitive, serum 2024 025 [facility], [address] [place], [place] [address], [place], [address], 12/10/2024 06:44:10 T3, free, serum or plasma 2024 025 [facility], [address] [place], [place] [address], [address], [place], [address], 12/10/2024 06:44:13 T4, free, serum 2024 025 [facility], [address] [facility], [place], [address], 12/10/2024 06:44:14 HIV 1 + 2 RNA panel, MILDRED+probe , serum or plasma 2024 025 [facility], [address] [place] [address] [address], [address], [place], [address], 12/10/2024 06:44:06 Referral gynecolog ic surgery referral - Patient with h/o endometri al ablation in 2018, now desiring a hysterect ralf 2024 025 [facility], [address] [place] [address], [address], 06/07/2025 15:48:04 general surgeon referral 2024 025 [facility] Lei MD, [address], [address], [place], [address], 03/12/2025 14:58:00 gynecolog ist referral 2024 025 [facility]rent [facility] (Ob), [address] [place], [address], 03/19/2025 15:27:38 Procedures colonosco py screening (PROC) [address] - Gastroenterol ogy, [address], [address], [place], [address], 07/10/2025 16:43:07 Surgeries None recorded. Imaging MAMMO, screening , digital, bilateral 2024 025 [facility] (Imaging), [address] [facility] [address], [place], [address], 08/01/2025 14:47:06 Medication Orders ibuprofen 600 mg tablet [address] [id number], [address] [place], [place], [id number], 03/05/2025 14:44:01 atorvasta tin 10 mg tablet 2024 025 [email or web address] [id number], [address] [place], [place], [id number], 12/08/2024 12:21:29 Patient TargetsNo targets recorded. Patient Instructions Encounter Date Encounter Id Patient Instructions Last Modified By Organization Details Last Modified Time 12/08/2024 [id number] diabetic foot exam* [facility] Not available 03/02/2025 10:56:27 02/28/2025 [id number] A healthy lifestyle: care instructions [email or web address] Not available 02/28/2025 12:58:40 03/05/2025 [id number] A healthy lifestyle: care instructions [email or web address] Not available 03/05/2025 14:43:54 I personally examined the patient with the resident physician. I agree with the findings, assessment, and plan as documented. Carlos Strong MD [email or web address] Not available 03/05/2025 15:30:50 04/17/2025 [id number] A healthy lifestyle: care instructions [email or web address] Not available 04/17/2025 17:45:06 05/30/2025 [id number] A healthy lifestyle: care instructions [email or web address] Not available 05/30/2025 12:49:45 Reason for Referral Channel Marketing Specialist Referral for Gy necologic examination Referring Physician: Hien Lamb, Internal Medicine, Encounter Date: 12/08/2024 General Surgeon Referral for Lipoma of back Referring Physician: Hien Lamb, Internal Medicine, Encounter Date: 02/28/2025 Gynecologic Surgery Referral for Perimenopausal state Patient with h/o endometrial ablation in 2018, now desiring a hysterectomy Referring Physician: Antonio Jang, [employer] Teacher, Encounter Date: 03/05/2025 Results Created Date Observation Date Name Description Value Unit Range Abnormal Flag Note LastModifiedBy Organization Detail LastModifiedTime 06/14/2006/14/2025 COLOG UARD cologuard result Cancel led - Order d not applic able Not Available [facility] [address], [place], [address], 06/14/2025 23:11:56 12/09/1912/09/2024 HIV-1 /HIV- 2 QUALI TATIV E RNA HIV-1 RNA NON REACTI VE nonrea ctive Not Available [facility] ([facility]) [address] [place], [address], 12/10/2024 06:44:06 12/09/1912/09/2024 HIV-1 /HIV- 2 QUALI TATIV E RNA HIV-2 RNA NON REACTI VE nonrea ctive Not Available [facility] ([facility]) [address] [place], [address], 12/10/2024 06:44:06 12/09/19 25 12/09/2024 LIPID PANEL cholesterol, total 142 mg/dL 100-19 9 Not Available [facility] ([facility]) [address] [place], [address], 12/10/2024 06:44:08 12/09/19 25 12/09/2024 LIPID PANEL triglyceride s 92 mg/dL 0-149 Not Available [facility] ([facility]) [address] [place], [address], 12/10/2024 06:44:08 12/09/19 25 12/09/2024 LIPID PANEL HDL cholesterol 34 mg/dL >39 below low normal Not Available [facility] ([facility]) [address] [place], [address], 12/10/2024 06:44:08 12/09/19 25 12/09/2024 LIPID PANEL VLDL cholesterol erin 18 mg/dL 5-40 Not Available [facility] ([facility]) [address] [place], [address], 12/10/2024 06:44:08 12/09/19 25 12/09/2024 LIPID PANEL LDL chol calc (nih) 90 mg/dL 0-99 Not Available [facility] ([facility]) [address] [place], [address], 12/10/2024 06:44:08 12/09/19 25 12/09/2024 COMP. METAB OLIC PANEL (14) glucose 106 mg/dL 70-99 above high normal Not Available [facility] ([facility]) [address] [place], [address], 12/10/2024 06:44:09 12/09/19 25 12/09/2024 COMP. METAB OLIC PANEL (14) BUN 10 mg/dL 6-24 Not Available [facility] ([facility]) [address] [place], [address], 12/10/2024 06:44:09 12/09/19 25 12/09/2024 COMP. METAB OLIC PANEL (14) creatinine 0.69 mg/dL 0.57-1 .00 Not Available [facility] ([facility]) [address] [place], [address], 12/10/2024 06:44:09 12/09/19 25 12/09/2024 COMP. METAB OLIC PANEL (14) eGFR 108 mL/mi n/1.7 3 >59 Not Available [facility] ([facility]) [address] [facility] [place], [address], 12/10/2024 06:44:09 12/09/19 25 12/09/2024 COMP. METAB OLIC PANEL (14) BUN/creatini ne ratio 14 9-23 Not Available [facility] ([facility]) [address] [facility] [place], [address], 12/10/2024 06:44:09 12/09/19 25 12/09/2024 COMP. METAB OLIC PANEL (14) sodium 139 mmol/ L 134-14 4 Not Available [facility] ([facility]) [address] [facility] [place], [address], 12/10/2024 06:44:09 12/09/19 25 12/09/2024 COMP. METAB OLIC PANEL (14) potassium 4.2 mmol/ L 3.5-5. 2 Not Available [facility] ([facility]) [address] [facility] [place], [address], 12/10/2024 06:44:09 12/09/19 25 12/09/2024 COMP. METAB OLIC PANEL (14) chloride 102 mmol/ L 96-106 Not Available [facility] ([facility]) [address] [facility] [place], [address], 12/10/2024 06:44:09 12/09/19 25 12/09/2024 COMP. METAB OLIC PANEL (14) carbon dioxide, total 25 mmol/ L Not Available [facility] ([facility]) [address] [facility], [place], [address], 12/10/2024 06:44:09 12/09/19 25 12/09/2024 COMP. METAB OLIC PANEL (14) calcium 8.9 mg/dL 8.7-10 .2 Not Available [facility] ([facility]) [address] [facility], [place], [address], 12/10/2024 06:44:09 12/09/1912/09/2024 COMP. METAB OLIC PANEL (14) protein, total 6.7 g/dL 6.0-8. 5 Not Available [facility] ([facility]) [address] [facility], [place], [address], 12/10/2024 06:44:09 12/09/19 25 12/09/2024 COMP. METAB OLIC PANEL (14) albumin 4.0 g/dL 3.9-4. 9 Not Available [facility] ([facility]) [address] [facility], [place], [address], 12/10/2024 06:44:09 12/09/19 25 12/09/2024 COMP. METAB OLIC PANEL (14) globulin, total 2.7 g/dL 1.5-4. 5 Not Available [facility] ([facility]) [address] [facility], [place], [address], 12/10/2024 06:44:09 12/09/19 25 12/09/2024 COMP. METAB OLIC PANEL (14) bilirubin, total 0.3 mg/dL 0.0-1. 2 Not Available [facility] ([facility]) [address] [facility], [place], [address], 12/10/2024 06:44:09 12/09/19 25 12/09/2024 COMP. METAB OLIC PANEL (14) alkaline phosphatase 64 IU/L 44-121 Not Available [facility] ([facility]) [address] [facility] [place], [address], 12/10/2024 06:44:09 12/09/19 25 12/09/2024 COMP. METAB OLIC PANEL (14) AST (SGOT) 13 IU/L 0-40 Not Available [facility] ([facility]) [address] [place], [address], 12/10/2024 06:44:09 12/09/19 25 12/09/2024 COMP. METAB OLIC PANEL (14) ALT (SGPT) 18 IU/L 0-32 Not Available [facility] ([facility]) [address] [facility], [place], [address], 12/10/2024 06:44:09 12/09/19 25 12/09/2024 TSH TSH 3.390 uIU/m L 0.450- 4.500 Not Available [facility] ([facility]) [address] [place], [address], 12/10/2024 06:44:10 12/09/19 25 12/09/2024 CBC WITH DIFFE RENTI AL/PL ATELE T WBC 8.4 x10e3 /uL 3.4-10 .8 Not Available [facility] ([facility]) [address] [place], [address], 12/10/2024 06:44:11 12/09/19 25 12/09/2024 CBC WITH DIFFE RENTI AL/PL ATELE T RBC 4.44 x10e6 /uL 3.77-5 .28 Not Available [facility] ([facility]) [address] [place], [address], 12/10/2024 06:44:11 12/09/19 25 12/09/2024 CBC WITH DIFFE RENTI AL/PL ATELE T hemoglobin 13.0 g/dL 11.1-1 5.9 Not Available [facility] ([facility]) [address] [facility], [place], [address], 12/10/2024 06:44:11 12/09/19 25 12/09/2024 CBC WITH DIFFE RENTI AL/PL ATELE T hematocrit 39.3 % 34.0-4 6.6 Not Available [facility] ([facility]) [address] [facility], [place], [address], 12/10/2024 06:44:11 12/09/1912/09/2024 CBC WITH DIFFE RENTI AL/PL ATELE T MCV 89 fL 79-97 Not Available [facility] ([facility]) [address] [facility], [place], [address], 12/10/2024 06:44:11 12/09/1912/09/2024 CBC WITH DIFFE RENTI AL/PL ATELE T MCH 29.3 pg 26.6-3 3.0 Not Available [facility] ([facility]) [address] [place], [address], 12/10/2024 06:44:11 12/09/19 25 12/09/2024 CBC WITH DIFFE RENTI AL/PL ATELE T MCHC 33.1 g/dL 31.5-3 5.7 Not Available [facility] ([facility]) [address] [place], [address], 12/10/2024 06:44:11 12/09/19 25 12/09/2024 CBC WITH DIFFE RENTI AL/PL ATELE T RDW 13.0 % 11.7-1 5.4 Not Available [facility] ([facility]) [address] [place], [address], 12/10/2024 06:44:11 12/09/19 25 12/09/2024 CBC WITH DIFFE RENTI AL/PL ATELE T platelets 304 x10e3 /uL 150-45 0 Not Available [facility] ([facility]) [address] [facility], [place], [address], 12/10/2024 06:44:11 12/09/19 25 12/09/2024 CBC WITH DIFFE RENTI AL/PL ATELE T neutrophils 68 % notest ab. Not Available [facility] ([facility]) [address] [facility], [place], [address], 12/10/2024 06:44:11 12/09/19 25 12/09/2024 CBC WITH DIFFE RENTI AL/PL ATELE T lymphs 25 % notest ab. Not Available [facility] ([facility]) [address] [facility], [place], [address], 12/10/2024 06:44:11 12/09/19 25 12/09/2024 CBC WITH DIFFE RENTI AL/PL ATELE T monocytes 4 % notest ab. Not Available [facility] ([facility]) [address] [facility], [place], [address], 12/10/2024 06:44:11 12/09/19 25 12/09/2024 CBC WITH DIFFE RENTI AL/PL ATELE T eos 1 % notest ab. Not Available [facility] ([facility]) [address] [facility], [place], [address], 12/10/2024 06:44:11 12/09/19 25 12/09/2024 CBC WITH DIFFE RENTI AL/PL ATELE T basos 1 % notest ab. Not Available [facility] ([facility]) [address] [facility], [place], [address], 12/10/2024 06:44:11 12/09/19 25 12/09/2024 CBC WITH DIFFE RENTI AL/PL ATELE T neutrophils (absolute) 5.8 x10e3 /uL 1.4-7. 0 Not Available [facility] ([facility]) [address] [facility], [place], [address], 12/10/2024 06:44:11 12/09/19 25 12/09/2024 CBC WITH DIFFE RENTI AL/PL ATELE T lymphs (absolute) 2.1 x10e3 /uL 0.7-3. 1 Not Available [facility] ([facility]) [address] [facility], [place], [address], 12/10/2024 06:44:11 12/09/19 25 12/09/2024 CBC WITH DIFFE RENTI AL/PL ATELE T monocytes(ab solute) 0.4 x10e3 /uL 0.1-0. 9 Not Available [facility] ([facility]) [address] [facility], [place], [address], 12/10/2024 06:44:11 12/09/19 25 12/09/2024 CBC WITH DIFFE RENTI AL/PL ATELE T eos (absolute) 0.1 x10e3 /uL 0.0-0. 4 Not Available [facility] ([facility]) [address] [facility], [place], [address], 12/10/2024 06:44:11 12/09/19 25 12/09/2024 CBC WITH DIFFE RENTI AL/PL ATELE T baso (absolute) 0.0 x10e3 /uL 0.0-0. 2 Not Available [facility] ([facility]) [address] [facility], [place], [address], 12/10/2024 06:44:11 12/09/19 25 12/09/2024 CBC WITH DIFFE RENTI AL/PL ATELE T immature granulocytes 1 % notest ab. Not Available [facility] ([facility]) [address] [facility], [place], [address], 12/10/2024 06:44:11 12/09/19 25 12/09/2024 CBC WITH DIFFE RENTI AL/PL ATELE T immature grans (abs) 0.0 x10e3 /uL 0.0-0. 1 Not Available [facility] ([facility]) [address] [facility], [place], [address], 12/10/2024 06:44:11 12/09/19 25 12/09/2024 TRIIO DOTHY LEENA E (T3), FREE triiodothyro nine (T3), free 2.8 pg/mL 2.0-4. 4 Not Available [facility] ([facility]) [address] [facility], [place], [address], 12/10/2024 06:44:13 12/09/1912/09/2024 T4,FR EE(DI RECT) T4,free(dire ct) 1.20 NG/dL 0.82-1 .77 Not Available [facility] ([facility]) [address] [facility], [place], [address], 12/10/2024 06:44:14 02/29/2003/01/2025 INTER PRETA TION: interpretati on: Commen t Not infec juju with HCV unles s early or acute infec tion is suspe cted (whic h may be delay ed in an immun ocomp romis ed indiv idual ), or other evide nce exist s to indic ate HCV infec tion. Not Available [facility] ([facility]) [address] [facility], [place], [address], 03/03/2025 06:16:10 02/29/2002/28/2025 STI PROFI LE, CT/NG interpretati on COMMEN T HBV Serol ogy Inter preta tion Chart ----- ----- ----- ----- ----- ----- ----- ----- ----- ----- ----- ----- ----- -- Inter preta tion HBsAg anti- HBs anti- HBc anti- HBc IgM ----- ----- ----- ----- ----- ----- ----- ----- ----- ----- ----- ----- ----- -- Morrow - Rosalie te prese nt: + Rosalie te absen t: - Test not indic ated: TNI ----- ----- ----- ----- ----- ----- ----- ----- ----- ----- ----- ----- ----- -- Susce ptibl e (neve r infec juju and no evide nce - - - TNI of lan garrett) ----- ----- ----- ----- ----- ----- ----- ----- ----- ----- ----- ----- ----- -- Immun e due to natur al resol devan infec tion - + + TNI ----- ----- ----- ----- ----- ----- ----- ----- ----- ----- ----- ----- ----- -- Immun e due to lan valle n - + - TNI ----- ----- ----- ----- ----- ----- ----- ----- ----- ----- ----- ----- ----- -- Acute Infec tion + - + + ----- ----- ----- ----- ----- ----- ----- ----- ----- ----- ----- ----- ----- -- Chron ic infec tion + - + - ----- ----- ----- ----- ----- ----- ----- ----- ----- ----- ----- ----- ----- -- Inter preta tion uncle ar* - - + +/- ----- ----- ----- ----- ----- ----- ----- ----- ----- ----- ----- ----- ----- -- *Mult iple possi bilit ies: resol devan infec tion (most veronicao tami); false - posit nrei anti- HBc ([facility] tom blanchard); low- level chron ic infec tion ; resol ving acute infec tion. Not Available [facility] ([facility]) [address] [facility], [place], [address], 03/03/2025 06:16:11 02/29/20 25 02/28/2025 STI ERICKA BLANCHARD, CT/NG interpretati on: COMMEN T Syphi lis: RPR with Refle x to RPR Titer and Trepo nemal Antib odies , Tradi jaime l Scree edison and Diagn osis Algor ithm ----- ----- ----- ----- ----- ----- ----- ----- ----- ----- ----- ----- Trepo nemal RPR RPR, Qn Ab Final Inter preta tion ----- --- ----- ---- ----- ----- ----- ----- ----- ----- ---- Non N/A N/A No labor atory evide nce React neri of syphi lis. Retes t in 2-4 weeks if recen t expos ure us suspe cted. ----- --- ----- ---- ----- ----- ----- ----- ----- ----- ---- React neri >/=1: 1 Non Nontr epone mal antib odies React neri detec juju. Syphi lis unlik kenyatta; biolo gical false posit neri possi ble. Retes t in 2-4 weeks if recen t expos ure is suspe cted. ----- --- ----- ---- ----- ----- ----- ----- ----- ----- ---- React neri >/=1: 1 React neri Trepo nemal and nontr epone mal antib odies detec juju. Consi stent with past or curre nt (pote ntial early ) syphi lis. Not Available [facility] ([facility]) [address] [place], [address], 03/03/2025 06:16:11 02/29/2003/01/2025 STI PROFI LE, CT/NG HBsAg screen NEGATI VE negati ve Not Available [facility] ([facility]) [address] [place], [address], 03/03/2025 06:16:11 02/29/20 25 03/01/2025 STI PROFI LE, CT/NG hep B surface Ab, qual NON REACTI VE Non React neri: Not immun e to HBV infec tion. Equiv ocal: Unabl e to deter mine if anti- HBs is prese nt at level s consi stent with immun ity. React neri: Anti- HBs valerie ntrat ion detec juju at great er than 10 mIU/m L. Indiv idual is consi dered to be immun e to infec tion with HBV. Not Available [facility] ([facility]) [address] [facility], [place], [address], 03/03/2025 06:16:11 02/29/2003/01/2025 STI PROFI LE, CT/NG hep B core Ab, tot NEGATI VE negati ve Not Available [facility] ([facility]) [address] [place], [address], 03/03/2025 06:16:11 02/29/20 25 03/01/2025 STI PROFI LE, CT/NG rfx to hbc IgM COMMEN T Refle x crite francine was not met. Not Available [facility] ([facility]) [address] [place], [address], 03/03/2025 06:16:11 02/29/20 25 03/01/2025 STI PROFI LE, CT/NG HCV Ab NON REACTI VE nonrea ctive Not Available [facility] ([facility]) [address] [place], [address], 03/03/2025 06:16:11 02/29/2003/01/2025 STI PROFI LE, CT/NG RPR NON REACTI VE nonrea ctive Not Available [facility] ([facility]) [address] [place], [address], 03/03/2025 06:16:11 02/29/2003/01/2025 STI PROFI LE, CT/NG HIV Ab/P24 Ag screen NON REACTI VE nonrea ctive HIV-1 /HIV- 2 antib odies and HIV-1 p24 antig en were NOT detec juju. There is no labor atory evide nce of HIV infec tion. HIV Negat neri Not Available [facility] ([facility]) [address] [place], [address], 03/03/2025 06:16:11 02/29/2003/02/2025 STI PROFI LE, CT/NG chlamydia trachomatis, MILDRED NEGATI VE negati ve Not Available [facility] ([facility]) [address] [place], [address], 03/03/2025 06:16:11 02/29/20 25 03/02/2025 STI PROFI LE, CT/NG neisseria gonorrhoeae, MILDRED NEGATI VE negati ve Not Available [facility] ([facility]) [address] [place], [address], 03/03/2025 06:16:11 02/29/20 25 03/01/2025 LIPID PANEL cholesterol, total 148 mg/dL 100-19 9 Not Available [facility] ([facility]) [address] [place], [address], 03/03/2025 06:16:12 02/29/20 25 03/01/2025 LIPID PANEL triglyceride s 106 mg/dL 0-149 Not Available [facility] ([facility]) [address] [place], [address], 03/03/2025 06:16:12 02/29/20 25 03/01/2025 LIPID PANEL HDL cholesterol 38 mg/dL >39 below low normal Not Available [facility] ([facility]) [address] [place], [address], 03/03/2025 06:16:12 02/29/20 25 03/01/2025 LIPID PANEL VLDL cholesterol erin 20 mg/dL 5-40 Not Available [facility] ([facility]) [address] [place], [address], 03/03/2025 06:16:12 02/29/20 25 03/01/2025 LIPID PANEL LDL chol calc ([facility]) 90 mg/dL 0-99 Not Available [facility] ([facility]) [address] [place], [address], 03/03/2025 06:16:12 02/29/20 25 03/01/2025 COMP. METAB OLIC PANEL (14) glucose 120 mg/dL 70-99 above high normal Not Available [facility] ([facility]) [address] [place], [address], 03/03/2025 06:16:13 02/29/20 25 03/01/2025 COMP. METAB OLIC PANEL (14) BUN 10 mg/dL 6-24 Not Available [facility] ([facility]) [address] [place], [address], 03/03/2025 06:16:13 02/29/20 25 03/01/2025 COMP. METAB OLIC PANEL (14) creatinine 0.76 mg/dL 0.57-1 .00 Not Available [facility] ([facility]) [address] [place], [address], 03/03/2025 06:16:13 02/29/20 25 03/01/2025 COMP. METAB OLIC PANEL (14) eGFR 98 mL/mi n/1.7 3 >59 Not Available [facility] ([facility]) [address] [place], [address], 03/03/2025 06:16:13 02/29/20 25 03/01/2025 COMP. METAB OLIC PANEL (14) BUN/creatini ne ratio 13 9-23 Not Available [facility] ([facility]) [address] [place], [address], 03/03/2025 06:16:13 02/29/20 25 03/01/2025 COMP. METAB OLIC PANEL (14) sodium 139 mmol/ L 134-14 4 Not Available [facility] ([facility]) [address] [place], [address], 03/03/2025 06:16:13 02/29/20 25 03/01/2025 COMP. METAB OLIC PANEL (14) potassium 4.7 mmol/ L 3.5-5. 2 Not Available [facility] ([facility]) [address] [place], [address], 03/03/2025 06:16:13 02/29/20 25 03/01/2025 COMP. METAB OLIC PANEL (14) chloride 103 mmol/ L 96-106 Not Available [facility] ([facility]) [address] [place], [address], 03/03/2025 06:16:13 02/29/20 25 03/01/2025 COMP. METAB OLIC PANEL (14) carbon dioxide, total 19 mmol/ L 20-29 below low normal Not Available [facility] ([facility]) [address] [place], [address], 03/03/2025 06:16:13 02/29/20 25 03/01/2025 COMP. METAB OLIC PANEL (14) calcium 9.0 mg/dL 8.7-10 .2 Not Available [facility] ([facility]) [address] [place], [address], 03/03/2025 06:16:13 02/29/20 25 03/01/2025 COMP. METAB OLIC PANEL (14) protein, total 7.1 g/dL 6.0-8. 5 Not Available [facility] ([facility]) [address] [place], [address], 03/03/2025 06:16:13 02/29/20 25 03/01/2025 COMP. METAB OLIC PANEL (14) albumin 4.1 g/dL 3.9-4. 9 Not Available [facility] ([facility]) [address] [place], [address], 03/03/2025 06:16:13 02/29/20 25 03/01/2025 COMP. METAB OLIC PANEL (14) globulin, total 3.0 g/dL 1.5-4. 5 Not Available [facility] ([facility] [address] [facility] [place] [address], 03/03/2025 06:16:13 02/29/20 25 03/01/2025 COMP. METAB OLIC PANEL (14) bilirubin, total 0.2 mg/dL 0.0-1. 2 Not Available [facility] ([facility]) [address] [facility], [place], [address], 03/03/2025 06:16:13 02/29/20 25 03/01/2025 COMP. METAB OLIC PANEL (14) alkaline phosphatase 65 IU/L 44-121 Not Available [facility] ([facility]) [address] [facility], [place], [address], 03/03/2025 06:16:13 02/29/20 25 03/01/2025 COMP. METAB OLIC PANEL (14) AST (SGOT) 10 IU/L 0-40 Not Available [facility] ([facility]) [address] [facility], [place], [address], 03/03/2025 06:16:13 02/29/20 25 03/01/2025 COMP. METAB OLIC PANEL (14) ALT (SGPT) 19 IU/L 0-32 Not Available [facility] ([facility]) [address] [facility], [place], [address], 03/03/2025 06:16:13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 02/16/2024 10:01:53 02/16/2024 10:47:04 Essential hypertension 16997503 I10 Hypothyroidism 25096688 E03.9 Motion sickness 63030426 T75.3XXA Sleep apnea 71713588 G47 .30 [id number] MD Rosey Walker (Adult Med) [address] [place] [address] 18503-053 0 06/14/2024 16:00:53 06/14/2024 17:01:13 Morbid obesity 806874594 E66.01 Essential hypertension 89189349 I10 Screening for malignant neoplasm of colon 721475997 Z12.11 Screening mammography 24 272191 Z12.31 Gynecologi c examination 75339959 Z01.419 Prediabetes 736549805 R7 3.03 Hypothyroidism 87313907 E03.9 [id number] MD Rosey Walker (Adult Med) [address] [place] [address] [id number] 0 12/08/2024 11:05:22 12/08/2024 12:05:49 Type 2 diabetes mellitus 06822330 E11.9 Hypothyroidism 13147694 E03.9 Essential hypertension 12388050 I10 Hyperlipidemia 83739010 E78.5 HIV screening 277844173 Z11.4 Screening for malignant neoplasm of colon 730075233 Z12.11 Gynecologi c examination 82891198 Z01.419 Obesity 603546678 E66.9 Obstructiv e sleep apnea syndrome 41577501 G47.33 [id number] MD Rosey Walker (Adult Med) [address] [place] [address] [id number] 0 02/28/2025 09:59:06 02/28/2025 10:53:22 Body mass index 40+ - severely obese 240790267 Z68.41 568363 Obese class III 97598865 5 E66.813 5077872003 Breast zach plasm screening status 628254749 Z12.31 134830 Type 2 otf betes mellitus 16685044 E11.9 Essential hypertension 93257829 I10 [facility] of sexually transmitted infection 145058942 Z20.2 5047362 Screening for malignant neoplasm of colon 855529436 Z12.11 424234 Lipoma of back 494073110 D17.1 2792558 [id number] Mendel Stanley MD [facility] (DIRECTOR FIELD SERVICES) [address] [place] [address] [id number] 0 03/05/2025 14:02:27 03/07/2025 16:26:19 Routine gynecologic examination 979286782 Z01.419 41713908 Breast exam normal today, PCP send MMG order,Yancy ent does not have any concerns today. Cancer cer vix screening status 788284028 Z12.4 190728 Normal cervical exam,-will do pap smear today. Screening mammography 24 466872 Z12.31 [id number] PCP order MMG, she is scheduled for next month Obese class III 47482194 5 E66.813 1826774614 43.3 Dysmenorrhea 438957001 N 94.6 61319 Patient with classic symptoms during periods.- has tried tylenol and heat pads.- will try Ibuprofen 600 mg PRN . Perimenopausal state 518 6909273 19755 N95.1 [id number] Patient with h/o endometria l ablation in 2018, now desiring a hysterecto my.- Will obtain FSH today and refer to [facility] at [facility] for further evaluation . Depression screening negative 8622573190 61381 Z13.31 98413973 PHQ9 score 0 [id number] MD Rosey Walker (Adult Med) [address] [place] [address] [id number] 0 04/17/2025 11:07:19 04/17/2025 12:00:52 Obese class III 209845666 E66.813 E66.3 8811454735 BMI 43.8 Essential hypertension 40781197 I10 Hypothyroidism 12675826 E03.9 Prediabetes 732487897 R7 3.03 [id number] [id number] MD Rosey Walker (Adult Med) [address] [place] [address] 97216-603 0 05/30/2025 10:58:09 05/30/2025 12:10:34 Obese class III 669374450 E66.813 E66.3 6186177699 BMI 44.5 Diabetes mellitus 329316 09 E11.9 04811 Essential hypertension 29381330 I10 Health Concerns Section Related Observation LastModified by Organization Detai ls LastModified Time None Recorded Concern Status LastModified by Organization Details LastModified Time None Recorded Advance Directives Directive N: Payers Insurance Date Sequence Insurance Name Policy Number Policy Vigil Covered Member ID Vigil Member ID Guarantor Name 11/24/2023 1 [employer] (POS) [id number] Krupa Justice [id number] Krupa Francis 06/16/2025 2 [facility] (PPO) [id number] Carlos Justice [id number] Krupa Francis 02/28/2025 3 [facility] (PPO) [id number] Krupa Justice [id number] Krupa Francis 06/16/2025 1 [facility] [id number] Krupa chaudhry [id number] Krupa Francis Notes Date Note Type Note Provider Name and Address Organization Details Recorded Time 12/08/2024 text/html tolerating the Ozempic but not as lot of weight loss last A1c 6.6 CPAP noncompliant hypothyroid no heat or cold intolerance Hien Lamb MD Attn: Accounting, [address], [place], [address], [facility] 12/08/2024 20:42:58 02/28/2025 text/html 1. Hypertension has not taken her medicine yet says it is a lot better at home wants checked for STD possible exposure needs colon cancer screening diabetes not taking her sugars like she should needs an A1c obesity needs strict caloric restriction and around back causing pain Hien Lamb MD Attn: Accounting, [address], [place], [address], [facility] 03/11/2025 17:11:01 03/05/2025 text/html ROS as noted in the HPI 44y/o F here today for a Women health exam. Endometrial ablation in 2018, s/p no menstrual cycle; now reporting last December 2023 her cycle resume and having cramps to the point the she is feeling nauseous and throwing up. She has try tylenol, heat pads, exercise. No family history of breast cancer.Noted her sister had ovarian cancer, was found after she had non-stop cycle. Carlos Strong MD Attn: Accounting, [address] , [place], [address], [facility] 03/05/2025 15:31:18 04/17/2025 text/html Some work comp issue they could not give her anti-inflammatorie s because her blood pressure was too high she has had no chest pain shortness of breath or palpitations at this time blood pressure today looks good 132/80 trying to watch her diet for prediabetes PCOS asymptomatic dyslipidemia taking her atorvastatin Hien Lamb MD Attn: Accounting, [address] [facility], [place], [address], [facility] 05/14/2025 16:48:48 05/30/2025 text/html Still having problems with blood pressure Hien Lamb MD Attn: Accounting, [address] [facility], [place], [address], [facility] 06/17/2025 15:22:53 OBGyn Episode Ob Episode Information Episode Created Date Number of Fetuses Patient Bloodtype Patient rh Status Prepregnancy Weight lbs Domestic Partner Domestic Partner Phone Father Name Racing Mechanic Status 07/05/20 18 1 CLOSED Fetus Data First Name Last Name Admitted to NICU Weight (g) Sex Living Outcome Pediatric Complications Fetus ID Race Codes Race Delivery Type 3968.93 M Full Term [id number] Repeat Darwin Calculation Initial Darwin Date Initial Exam Date Initial Exam Provider Initial Ultrasound Date Last Menstrual Period Date Ultra Sound Weeks Gestation 0 Eighteen To Twenty Week Darwin Update Ultra Sound Date Fundal Height At Umbil Quickening Date Ultra Sound Latest Weeks Gestation Final Darwin Confirmed By Final Darwin Confirmed Date Final Darwin Date Ultra Sound Latest Days Gestation 0 0 Menstrual History Last Menstrual Date Menses Monthly On Bcp Conception Prior Menses Frequency Hcg Plus Date Menarche Onset Age Delivery Information Delivery Date Delivery Type Labor Anesthesia Weeks Gestation Incision Type Labor Labor Length Hrs Delivered By Post Complications Tubal Sterilization Discharge Date Comments 1 [facility] Discharge Information Feeding Method Contraceptive Method Maternal HG B and HCT Levels Ob Episode Information Episode Created Date Number of Fetuses Patient Bloodtype Patient rh Status Prepregnancy Weight lbs Domestic Partner Domestic Partner Phone Father Name Racing Mechanic Status 07/05/20 18 1 CLOSED Fetus Data First Name Last Name Admitted to NICU Weight (g) Sex Living Outcome Pediatric Complications Fetus ID Race Codes Race Delivery Type 3203.26 6704 F Full Term 61643 Repeat Darwin Calculation Initial Darwin Date Initial Exam Date Initial Exam Provider Initial Ultrasound Date Last Menstrual Period Date Ultra Sound Weeks Gestation 0 Eighteen To Twenty Week Darwin Update Ultra Sound Date Fundal Height At Umbil Quickening Date Ultra Sound Latest Weeks Gestation Final Darwin Confirmed By Final Darwin Confirmed Date Final Darwin Date Ultra Sound Latest Days Gestation 0 0 Menstrual History Last Menstrual Date Menses Monthly On Bcp Conception Prior Menses Frequency Hcg Plus Date Menarche Onset Age Delivery Information Delivery Date Delivery Type Labor Anesthesia Weeks Gestation Incision Type Labor Labor Length Hrs Delivered By Post Complications Tubal Sterilization Discharge Date Comments 4 [facility] 40 Discharge Information Feeding Method Contraceptive Method Maternal HG B and HCT Levels Ob Episode Information Episode Created Date Number of Fetuses Patient Bloodtype Patient rh Status Prepregnancy Weight lbs Domestic Partner Domestic Partner Phone Father Name Racing Mechanic Status 07/05/20 18 1 CLOSED Fetus Data First Name Last Name Admitted to NICU Weight (g) Sex Living Outcome Pediatric Complications Fetus ID Race Codes Race Delivery Type 3288.54 2 F Prematur e 77811 Repeat Darwin Calculation Initial Darwin Date Initial Exam Date Initial Exam Provider Initial Ultrasound Date Last Menstrual Period Date Ultra Sound Weeks Gestation 0 Eighteen To Twenty Week Darwin Update Ultra Sound Date Fundal Height At Umbil Quickening Date Ultra Sound Latest Weeks Gestation Final Darwin Confirmed By Final Darwin Confirmed Date Final Darwin Date Ultra Sound Latest Days Gestation 0 0 Menstrual History Last Menstrual Date Menses Monthly On Bcp Conception Prior Menses Frequency Hcg Plus Date Menarche Onset Age Delivery Information Delivery Date Delivery Type Labor Anesthesia Weeks Gestation Incision Type Labor Labor Length Hrs Delivered By Post Complications Tubal Sterilization Discharge Date Comments 9 [facility] Discharge Information Feeding Method Contraceptive Method Maternal HG B and HCT Levels Ob Episode Information Episode Created Date Number of Fetuses Patient Bloodtype Patient rh Status Prepregnancy Weight lbs Domestic Partner Domestic Partner Phone Father Name Racing Mechanic Status 07/05/20 18 1 CLOSED Fetus Data First Name Last Name Admitted to NICU Weight (g) Sex Living Outcome Pediatric Complications Fetus ID Race Codes Race Delivery Type 4110.45 0704 M Full Term [id number] Primary Darwin Calculation Initial Darwin Date Initial Exam Date Initial Exam Provider Initial Ultrasound Date Last Menstrual Period Date Ultra Sound Weeks Gestation 0 Eighteen To Twenty Week Darwin Update Ultra Sound Date Fundal Height At Umbil Quickening Date Ultra Sound Latest Weeks Gestation Final Darwin Confirmed By Final Darwin Confirmed Date Final Darwin Date Ultra Sound Latest Days Gestation 0 0 Menstrual History Last Menstrual Date Menses Monthly On Bcp Conception Prior Menses Frequency Hcg Plus Date Menarche Onset Age Delivery Information Delivery Date Delivery Type Labor Anesthesia Weeks Gestation Incision Type Labor Labor Length Hrs Delivered By Post Complications Tubal Sterilization Discharge Date Comments 7 [facility] [address] in [place], [place] Discharge Information Feeding Method Contraceptive Method Maternal HG B and HCT Levels
--- OUTSIDE RECORDS SUMMARY | 2025-08-07 00:28 | XMS_ITS | Clinical Summary ---
Author Organization [facility] Address [address] [place] [address] Care Team Providers Care Manufacturing Recruiter Name Role Phone Zan Lmab MD Primary Care Provider [phone] Allergies No known active allergies Medications carvediloL (COREG) 25 mg tablet Take 1 tablet (25 mg total) by mouth 2 (two) times a day 11/26/2022 Active cloNIDine (CATAPRES) 0.1 mg tablet Take 1 tablet (0.1 mg total) by mouth 2 (two) times a day 02/01/2023 Active levothyroxine (SYNTHROID) 50 mcg tablet Take 1 tablet (50 mcg total) by mouth daily 11/26/2022 Active metFORMIN (GLUCOPHAGE) 500 mg tablet Take 1 tablet (500 mg total) by mouth daily 11/26/2022 Active spironolactone (ALDACTONE) 25 mg tablet Take 1 tablet (25 mg total) by mouth daily 12/07/2022 Active Active Problems No known active problems Social History Tobacco Use Types Packs/Day Years Used Date Smoking Tobacco: Never Smokeless Tobacco: Never Tobacco Cessation:Counseling Given: Not Answered Personal Safety Answer Date Recorded Getting School Help Needed Not on file 09/12 Comments Unknown Sex and Gender Information Value Date Recorded Sex Assigned at Not on file Legal Sex Female 9:09 AM [employer] TE[employer] Gender Identity Not on file Sexual Orientation Not on file Last Filed Vital Signs Vital Sign Reading Time Taken Comments Blood Pressure 131/77 02/19/2023 2:28 PM CDT Pulse 87 02/19/2023 2:28 PM CDT Temperature - - Respiratory Rate - - Oxygen Saturation - - Inhaled Oxygen Concentration - - Weight 144 kg (317 lb 6.4 oz) 02/19/2023 2:28 PM CDT Height 167.6 cm (5' 6) 02/19/2023 2:28 PM CDT Body Mass Index 51.23 02/19/2023 2:28 PM CDT Plan of Treatment Health Maintenance Due Date Last Done Comments Breast Cancer Screening-Mammogram 1978 Cervical Cancer Screening 1978 Colon Cancer Screening-Colonoscopy 1978 Depression Screening 1978 Hepatitis C Screening 1978 DTaP/Tdap/Td Vaccine (1 - Tdap) 1989 Hepatitis B Screening 1996 Regular Well Visit/Exam 18-64 1996 Influenza Vaccine (#1) 2025 Pneumococcal vaccine <65 Aged Out No longer eligible based on patient's age to complete this topic Insurance [facility] Address: [address] [address] [facility] CHOICE PLUS [facility] PL[facility] H[facility]/PPO Address: [address] [address] [place] [address] [facility] H[facility]/PPO Address: [address] [address] [place] [address] [facility]O Address: [address] [address] [place] [address] [facility] Address: [address] [address] [place] [address] [facility] H[facility]/PPO Address: [address] [address] [place] [address] Care Teams Manufacturing Recruiter Relationship Specialty Start Date End Date Zan Lamb MD PCP - General Internal Medicine 05/28/22
[2025-08-07 08:19] VITALS: BP 179/91; PULSE 78; RESP 16; TEMP 36.7; O2SAT 100; BMI 44.6
[2025-08-07 08:25] LABS: BEDSIDEPREGUCG Negative (Negative)
[2025-08-07] MEDS: LACTATED RINGERS 1,000 ML 150 ML IV CONT (08:28)
--- NOTE | 2025-08-07 09:03 | P.PNAN_ITS ---
Anes - Initial Pre Proc Eval Procedure: Operation Date: 08/07/25 09:30 Proposed Procedures p Screening Colonoscopy - Rell Shine DO Date/Time: 08/07/25 09:03 Surgeon: Rell Shine DO Pre Op Diagnosis: Neoplasm screening Patient Data Age: 45 Gender: F Height: 1.68 m Weight: 125.6 kg Last Vital Signs Temp 98.1 F 08/07/25 08:19 Pulse 78 08/07/25 08:19 Resp 16 08/07/25 08:19 BP 179/91 H 08/07/25 08:19 Pulse Ox 100 08/07/25 08:19 O2 Del Method Room Air 08/07/25 08:19 Allergies Allergy/AdvReac Type Severity Reaction Status Date / Time No Known Allergies Allergy Mild Verified 08/07/25 08:19 Home Medications ?Medication ?Instructions ?Recorded ?Confirmed ?Type carvedilol 25 mg tablet 25 mg PO Q12H 03/07/2508/07 History levothyroxine 13 mcg capsule 13 mcg PO DAILY 03/07/25 08/07/25 History lisinopril 10 2 tablet PO DAILY 03/07/25 1 10/07/24 History mg-hydrochlorothiazide 12.5 mg tablet metformin 500 mg tablet 500 mg PO BID 03/07/2508/07 History semaglutide 1 mg/dose (4 mg/3 mL) 1 mg subcut WEEKLY 0 03/09/25 08/07/25 History subcutaneous pen injector (Ozempic) Laboratory Tests 08/07/25 08/07/25 08:22 08:29 POC Capillary Glucose 101 mg/dl (65-105) POC Urine HCG, Qual Negative (Negative) Patient hx anesthesia problems: post op nausea/vomiting Family hx anesthesia problems: none Results Review: All pre-operative results and documents have been reviewed as part of the pre-op erative evaluation. [facility] Past Medical History Medical History Hypertension Surgical History Surgical History No pertinent past surgical history Social History Social History Smoking status: Never smoker Alcohol intake: never Substance use: never Substance use type: does not use Current Housing: Decline to Answer Concerned About Future Housing: Decline to Answer Difficulty Paying Gas/Electric Bills: Decline to Answer Difficulty Paying for Meds: Decline to Answer Currently Unemployed: Decline to Answer Education: Decline to Answer Difficulty w/ Childcare or Family Care: Decline to Answer Living arrangements: with family Occupation/Education: occupation Additional occupation/education comments: [employer] Spiritual care concerns: No Agree to blood products: Yes Anes - Eval Final PreProcedure Day of Procedure 08/07/25 09:03 Patient weight: obese Lungs: normal air movement Airway: Mallampati scale class II Neurological: alert and oriented Last oral intake: >/= 8 hours ASA classification: III Emergent: no Anesthetic plan: proceed Anesthesia type and monitoring: general GIVS and standard monitoring Results Review: All pre-operative results and documents have been reviewed as part of the pre- operative evaluation. HTN, hypothyroidism, DM fsbs 101, active without cp or sob. Informed Consent: The patient's anesthetic plan and its attendant risks and benefits were discussed with the patient/family/POA. Questions were solicited and answers provided to the satisfaction of the patient/family/POA.
[2025-08-07] MEDS: ONDANSETRON INJ 4 MG/2 ML VIAL IV PUSH (09:10)
[2025-08-07] MEDS: FAMOTIDINE 20 MG/2 ML VIAL IV PUSH (09:10)
--- NOTE | 2025-08-07 09:23 | PM.IMHP ---
H&P: HPI History of Present Illness Date/Time: 08/07/25 09:23 Chief Complaint: Screening for colorectal cancer Narrative: This is a 45-year-old woman who presents for her 1st colonoscopy. She denies any hematochezia or melena. She denies any family history of colon cancer. Review of Systems Review of Systems: All systems reviewed & are unremarkable except as noted in HPI and below Constitutional: Constitutional: Denies chills, Denies fever(s), Denies headache(s) and Denies weight loss Eyes: Eyes: Denies change in vision ENT: Denies dizziness, Denies headache(s), Denies neck mass and Denies throat swelling Cardiovascular: Cardiovascular: Denies chest pain, Denies lightheadedness and Denies dyspnea Respiratory: Respiratory: Denies cough, Denies dyspnea and Denies wheezing Gastrointestinal: Gastrointestinal: Denies abdominal pain, Denies change in bowel habits, Denies nausea and Denies vomiting Genitourinary: Genitourinary: Denies hematuria and Denies dysuria Musculoskeletal: Musculoskeletal: Reports as per HPI Integumentary/Breasts: Skin/Breast: Reports as per HPI Neurologic: Denies dizziness and Denies headache(s) Allergic/Immunologic: Allergic/Immunologic: Denies throat swelling and Denies wheezing PMFSH Past Medical History Medical History Hypertension Surgical History Surgical History No pertinent past surgical history Social History Social History Smoking status: Never smoker Alcohol intake: never Substance use: never Substance use type: does not use Current Housing: Decline to Answer Concerned About Future Housing: Decline to Answer Difficulty Paying Gas/Electric Bills: Decline to Answer Difficulty Paying for Meds: Decline to Answer Currently Unemployed: Decline to Answer Education: Decline to Answer Difficulty w/ Childcare or Family Care: Decline to Answer Living arrangements: with family Occupation/Education: occupation Additional occupation/education comments: [employer] - [employer] Spiritual care concerns: No Agree to blood products: Yes Meds Home Medications and Allergies Home Medications ?Medication ?Instructions ?Recorded ?Confirmed ?Type carvedilol 25 mg tablet 25 mg PO Q12H 03/07/25 08/07/25 History levothyroxine 13 mcg capsule 13 mcg PO DAILY 03/07/25 08/07/25 History lisinopril 10 2 tablet PO DAILY 03/07/25 08/07/25 History mg-hydrochlorothiazide 12.5 mg tablet metformin 500 mg tablet 500 mg PO BID 03/07/25 08/07/25 History semaglutide 1 mg/dose (4 mg/3 mL) 1 mg subcut WEEKLY 03/09/25 08/07/25 History subcutaneous pen injector (Ozempic) Allergies Allergy/AdvReac Type Severity Reaction Status Date / Time No Known Allergies Allergy Mild Verified 08/07/25 08:19 Vital Signs Vital Signs - 24 hr 08/07/25 08:19 Temperature 98.1 F Pulse Rate 78 Respiratory Rate 16 Blood Pressure 179/91 H Pulse Oximetry 100 Oxygen Delivery Room Air Exam Const: General: no acute distress and alert Orientation/consciousness: patient oriented x3 HENMT: Head: normocephalic and atraumatic Ears: hearing grossly normal bilaterally Face/Nose/Sinus: Normal nares present Mouth: Yes Normal oral and palatal mucosa present Eyes: Periorbital: periorbital findings normal Sclera: sclerae normal EOM: EOMs intact bilaterally Neck: Neck: normal visual inspection, no lymphadenopathy and trachea midline Chest: Chest palpation & inspection: normal inspection of the chest Resp: Effort & Inspection: normal respiratory effort Auscultation: clear to auscultation bilaterally Cardio: Jugular venous distension: no JVD Rate: regular rate Rhythm: regular rhythm Heart sounds: S1 normal heart sound present and S2 normal heart sound present Peripheral pulses: Peripheral pulses 2+ throughout GI: Inspection: normal to inspection GI Palp: Yes Soft to palpation, No Tenderness to palpation present (GI), No Guarding due to palpation present (GI) and No Rebound tenderness present Percussion: Yes normal to percussion Auscultation: normal bowel sounds : General: Yes no CVA tenderness Back/Spine/Pelvis: Back: no CVA tenderness Neuro: General: patient oriented x3, no focal motor deficits and CN's II-XI intact bilaterally Cognition (Neuro): normal cognition Speech: normal speech Motor exam (neuro): 5/5 motor strength present throughout Extrem: General: capillary refill normal and no clubbing, cyanosis or edema Assessment and Plan Assessment and plan (1) Screening for colorectal cancer: Code(s): Z12.11 - Encounter for screening for malignant neoplasm of colon; Z12.12 - Encounter for screening for malignant neoplasm of rectum Status: Acute Assessment and Plan: I have recommended colonoscopy. I have discussed the procedure, risks, benefits, and alternatives. Questions were answered. Patient is agreeable to proceed.
[2025-08-07 09:51] VITALS: BP 128/65; PULSE 78; RESP 16; O2SAT 100
[2025-08-07 10:01] VITALS: BP 165/84; PULSE 63; RESP 16; O2SAT 100
[2025-08-07 10:11] VITALS: BP 162/74; PULSE 60; RESP 14; O2SAT 100
== END 2025-08-07 10:20 | disposition home or self-care (01) ==
PROVIDERS: Anesthesiology; PCP Internal Medicine; Visit Provider Surgery
PROC: 0DJD8ZZ Inspection of Lower Intestinal Tract, Via Natural or Artificial Opening Endoscopic (ICD-10-PCS; CPT 45378; principal; 2025-08-07 09:30)
DX: Z12.11 Encounter for screening for malignant neoplasm of colon (principal); E66.9 Obesity, unspecified; Z68.41 Body mass index [BMI] 40.0-44.9, adult; Z79.85 Long-term (current) use of injectable non-insulin antidiabetic drugs
CPT/HCPCS: 45378; 82948; J2003; J2405; J2704; J7120